=== PATIENT | female | born 1945 | race Caucasian/White ===

== ENCOUNTER 2020-07-18 14:17 | Outpatient (CLI) | payer MEDICARE ==
[2020-07-18 15:34] LABS: #Eosinphils 0.2 10x3/uL (0.0-0.5); #Monocytes 0.8 10x3/uL (0.0-1.1); #Neutrophils 6.9 10x3/uL (1.5-8.4); %Basophils 0.4 % (0.0-2.0); %Eosinophils 2.4 % (0.0-6.0); %Lymphocytes 17.3 % (18.0-47.0); %Monocytes 8.2 % (0.0-10.0); %Neutrophils 71.2 % (40.0-75.0); Hemoglobin 13.2 g/dL (12.0-15.5); Mean Corpuscular HGB CONC 31.5 g/dL (32.0-36.0); Mean Corpuscular Hemoglobin 28.4 pg (27.0-33.0); Mean Corpuscular Volume 90.3 fl (81.6-98.3); Mean Platelet Volume 9.5 fl (7.4-10.4); Platelet Count 376 10x3/uL (150-450); RBC Distribution Width 14.6 % (11.5-14.5); Red Blood Cell (RBC) Count 4.64 10x6/uL (3.90-5.03); White Blood Cell (WBC) Count 9.7 10x3/uL (3.5-10.5)
[2020-07-18 15:42] LABS: ALT (SGPT) 12 U/L (8-55); AST (SGOT) 18 U/L (5-34); Albumin 3.8 g/dL (3.4-4.8); Alkaline Phosphatase 52 U/L (40-110); Anion Gap 13 mmol/L (10-20); BUN (Urea Nitrogen) 12 mg/dL (9.8-20.1); Bilirubin, Total 0.3 mg/dL (0.2-1.2); Calc. Creatinine Clearance 0 mL/min (70-130); Calcium 9.4 mg/dL (7.8-10.44); Carbon Dioxide 28 mmol/L (23-31); Chloride 106 mmol/L (98-107); Glucose 103 mg/dL (83-110); Potassium 3.9 mmol/L (3.5-5.1); Protein, Total 6.8 g/dL (5.8-8.1); Sodium 143 mmol/L (136-145)
[2020-07-19 02:31] LABS: SARS-CoV-2 PCR by NAA Not Detected (NotDetected)
== END 2020-07-18 14:18 | disposition home or self-care (01) ==
LOC: LABBT 14:17
PROVIDERS: ATTEND Internal Medicine Cardiovascular Disease
DX: Z01.812 Encounter for preprocedural laboratory examination (principal); Z20.822 Contact with and (suspected) exposure to COVID-19
CPT/HCPCS: 80053; 85025; U0003; U0005; 87635

== ENCOUNTER 2020-08-01 13:51 | Outpatient (CLI) | payer MEDICARE ==
[2020-08-01 16:01] LABS: #Basophils 0.1 10x3/uL (0.0-0.2); #Eosinphils 0.1 10x3/uL (0.0-0.5); #Monocytes 0.8 10x3/uL (0.0-1.1); %Basophils 0.5 % (0.0-2.0); %Eosinophils 1.5 % (0.0-6.0); %Lymphocytes 16.1 % (18.0-47.0); %Monocytes 8.1 % (0.0-10.0); %Neutrophils 73.1 % (40.0-75.0); Hemoglobin 13.6 g/dL (12.0-15.5); Mean Corpuscular HGB CONC 32.1 g/dL (32.0-36.0); Mean Corpuscular Hemoglobin 28.7 pg (27.0-33.0); Mean Corpuscular Volume 89.5 fl (81.6-98.3); Mean Platelet Volume 9.4 fl (7.4-10.4); Platelet Count 362 10x3/uL (150-450); RBC Distribution Width 14.8 % (11.5-14.5); Red Blood Cell (RBC) Count 4.74 10x6/uL (3.90-5.03); White Blood Cell (WBC) Count 9.6 10x3/uL (3.5-10.5)
[2020-08-01 16:27] LABS: ALT (SGPT) 13 U/L (8-55); AST (SGOT) 17 U/L (5-34); Albumin 3.9 g/dL (3.4-4.8); Alkaline Phosphatase 49 U/L (40-110); Anion Gap 14 mmol/L (10-20); BUN (Urea Nitrogen) 15 mg/dL (9.8-20.1); Bilirubin, Total 0.4 mg/dL (0.2-1.2); Calc. Creatinine Clearance 0 mL/min (70-130); Calcium 9.7 mg/dL (7.8-10.44); Carbon Dioxide 26 mmol/L (23-31); Chloride 105 mmol/L (98-107); Globulin 2.8 g/dL (2.4-3.5); Glucose 89 mg/dL (83-110); Potassium 4.4 mmol/L (3.5-5.1); Protein, Total 6.7 g/dL (5.8-8.1); Sodium 141 mmol/L (136-145)
[2020-08-02 01:00] LABS: SARS-CoV-2 PCR by NAA Not Detected (NotDetected)
== END 2020-08-01 13:52 | disposition home or self-care (01) ==
LOC: LABBT 13:51
PROVIDERS: ATTEND Internal Medicine Cardiovascular Disease
DX: Z01.812 Encounter for preprocedural laboratory examination (principal); Z20.822 Contact with and (suspected) exposure to COVID-19
CPT/HCPCS: 80053; 85025; U0003; U0005; 87635

== ENCOUNTER 2020-08-06 07:38 | Day surgery (SDC) | payer MEDICARE ==
[2020-08-03 12:03] VITALS: BMI 30.5
[2020-08-06] MEDS ORDERED: Iopamidol 370 76% 100 ML VIAL ONE (08:47)
[2020-08-06] MEDS ORDERED: Lidocaine 1% (PF) 30 ML VIAL ONE (09:24)
[2020-08-06] MEDS ORDERED: Nitroglycerin 100MG/250ML BOT 250 ML ONE (09:46)
[2020-08-06] MEDS ORDERED: Midazolam HCl 2 mg/2 ml Vial ONE (09:47)
[2020-08-06] MEDS ORDERED: Fentanyl 100 MCG/2 ML VIAL ONE (09:47)
[2020-08-06] MEDS ORDERED: Verapamil 5 MG/2 ML VIAL ONE (09:47)
[2020-08-06] MEDS ORDERED: Heparin 10,000 UNITS/ 10 ML VIAL ONE (09:48)
[2020-08-06] MEDS ORDERED: Morphine 2 MG/ML VIAL ONE (11:34)
[2020-08-06] MEDS ORDERED: Morphine 4 MG/ML VIAL SLOW IVP SCH (12:15)
[2020-08-06] MEDS ORDERED: Acetaminophen/Codeine 30-300mg Tablet ONE (13:15)
== END 2020-08-06 14:00 | disposition home or self-care (01) ==
LOC: CCL 07:38
PROVIDERS: ATTEND Internal Medicine Cardiovascular Disease
PROC: 4A023N7 Measurement of Cardiac Sampling and Pressure, Left Heart, Percutaneous Approach (ICD-10-PCS; principal; 2020-08-06)
PROC: B2111ZZ Fluoroscopy of Multiple Coronary Arteries using Low Osmolar Contrast (ICD-10-PCS; 2020-08-06)
DX: I25.10 Atherosclerotic heart disease of native coronary artery without angina pectoris (principal); I48.0 Paroxysmal atrial fibrillation; I10 Essential (primary) hypertension; M19.90 Unspecified osteoarthritis, unspecified site; E78.5 Hyperlipidemia, unspecified; K21.9 Gastro-esophageal reflux disease without esophagitis; Z79.01 Long term (current) use of anticoagulants; Z79.899 Other long term (current) drug therapy; Z91.040 Latex allergy status; Z91.048 Other nonmedicinal substance allergy status
CPT/HCPCS: 76942; 93458; 99152; 99153; J1644; J2001; J2250; J2270; J3010; Q9967

== ENCOUNTER 2020-09-06 13:18 | Outpatient (CLI) | payer MEDICARE ==
[2020-09-06 15:12] LABS: Anion Gap 13 mmol/L (10-20); BUN (Urea Nitrogen) 20 mg/dL (9.8-20.1); Calc. Creatinine Clearance 0 mL/min (70-130); Calcium 9.8 mg/dL (7.8-10.44); Carbon Dioxide 27 mmol/L (23-31); Chloride 106 mmol/L (98-107); Glucose 70 mg/dL (83-110); Potassium 4.9 mmol/L (3.5-5.1); Sodium 141 mmol/L (136-145)
[2020-09-06 15:18] LABS: #Basophils 0.1 10x3/uL (0.0-0.2); #Eosinphils 0.1 10x3/uL (0.0-0.5); #Monocytes 0.9 10x3/uL (0.0-1.1); %Basophils 0.5 % (0.0-2.0); %Lymphocytes 20.1 % (18.0-47.0); %Monocytes 8.5 % (0.0-10.0); %Neutrophils 69.2 % (40.0-75.0); Hemoglobin 13.5 g/dL (12.0-15.5); Mean Corpuscular HGB CONC 31.8 g/dL (32.0-36.0); Mean Corpuscular Hemoglobin 29.3 pg (27.0-33.0); Mean Corpuscular Volume 92.2 fl (81.6-98.3); Platelet Count 368 10x3/uL (150-450); RBC Distribution Width 15.2 % (11.5-14.5); Red Blood Cell (RBC) Count 4.61 10x6/uL (3.90-5.03); White Blood Cell (WBC) Count 10.1 10x3/uL (3.5-10.5)
[2020-09-06 15:38] LABS: INR-International Normal Ratio 3.1; Prothrombin Time 32.4 sec (9.5-12.1)
== END 2020-09-06 13:19 | disposition home or self-care (01) ==
LOC: LABBT 13:18
PROVIDERS: ATTEND Orthopaedic Surgery
DX: Z01.818 Encounter for other preprocedural examination (principal); M16.12 Unilateral primary osteoarthritis, left hip
CPT/HCPCS: 80048; 85025; 85610; 87081; 93005; 93010

== ENCOUNTER 2020-09-11 09:23 | Inpatient (IN) | payer MEDICARE ==
[2020-09-11] MEDS ORDERED: Fentanyl 100 MCG/2 ML VIAL ONE ×3 (09:43→13:21)
[2020-09-11] MEDS ORDERED: Midazolam HCl 2 mg/2 ml Vial ONE ×2 (09:43→11:44)
[2020-09-11] MEDS ORDERED: Vancomycin 1 GM/200 ML BAG ONE (11:23)
[2020-09-11] MEDS ORDERED: Tranexamic Acid 1,000 MG/10 ML VIAL ONE (11:23)
[2020-09-11] MEDS ORDERED: Hydrocerin (Eucerin) Cream 120 gm Jar TOP PRN (12:30)
[2020-09-11] MEDS ORDERED: Bupivacaine 0.25% 10 ML VIAL EPIDURAL PRN (12:30)
[2020-09-11] MEDS ORDERED: traMADol HCl 50 MG TAB PO PRN ×2 (12:30)
[2020-09-11] MEDS ORDERED: diphenhydrAMINE 50 MG/ML VIAL IM PRN (12:30)
[2020-09-11] MEDS ORDERED: Promethazine HCl 25 MG SUPP PR PRN (12:30)
[2020-09-11] MEDS ORDERED: Naloxone HCl 0.4 mg/ml Vial IV PRN (12:30)
[2020-09-11] MEDS ORDERED: Promethazine HCl 25 MG/ML VIAL IM PRN ×3 (12:30→15:41)
[2020-09-11] MEDS ORDERED: diphenhydrAMINE 50 MG/ML VIAL IVP PRN (12:30)
[2020-09-11] MEDS ORDERED: Ondansetron PF 4 MG/2 ML Vial IVP PRN ×2 (12:30→13:12)
[2020-09-11] MEDS ORDERED: Zolpidem Tartrate 5 MG TAB PO PRN ×2 (12:30→13:12)
[2020-09-11] MEDS ORDERED: Naloxone HCl 0.4 mg/ml Vial IVP PRN (12:30)
[2020-09-11] MEDS ORDERED: Acetaminophen 325 MG TAB PO PRN (13:12)
[2020-09-11] MEDS ORDERED: diphenhydrAMINE 25 MG CAP PO PRN (13:12)
[2020-09-11] MEDS ORDERED: HYDROcodone/Acetaminophen 10/325 mg Tablet PO PRN ×2 (13:12)
[2020-09-11] MEDS ORDERED: Phenylephrine 10 MG/ML VIAL ONE (13:21)
[2020-09-11] MEDS ORDERED: Bupivacaine 0.25% HCL 30 ML VIAL ONE (13:22)
[2020-09-11] MEDS ORDERED: Dexamethasone 20 MG/5 ML VIAL ONE (13:35)
[2020-09-11] MEDS ORDERED: Lidocaine 1.5% w/Epi 1:200K 30 ML VIAL (Epid Use) ONE (13:35)
[2020-09-11] MEDS ORDERED: Lidocaine 1% PF 5 ML VIAL ONE (13:35)
[2020-09-11] MEDS ORDERED: Ondansetron PF 4 MG/2 ML Vial ONE (13:35)
[2020-09-11] MEDS ORDERED: Glycopyrrolate 0.2 MG/ML 5 ML SYRINGE ONE (13:35)
[2020-09-11] MEDS ORDERED: PROPOFOL 200 MG/20 ML VIAL ONE (13:35)
[2020-09-11] MEDS ORDERED: Rocuronium Bromide 10 MG/ML (10ML VIAL) ONE (13:35)
[2020-09-11] MEDS ORDERED: SUMAtriptan Succinate 50 MG TAB PO PRN (13:35)
[2020-09-11] MEDS ORDERED: Ketorolac Tromethamine 30 MG/ML VIAL ONE (13:35)
[2020-09-11] MEDS ORDERED: Ondansetron HCl/PF 4 MG/2 ML Vial IVP PRN (15:41)
[2020-09-11] MEDS ORDERED: Promethazine HCl 25 MG/ML VIAL SLOW IVP PRN (15:41)
[2020-09-11] MEDS ORDERED: Meperidine HCl/PF 25 MG/ML VIAL ONE (15:57)
[2020-09-11] MEDS: CEFAZOLIN 2 GM in Premix Bag 1 BAG IVPB SCH (20:23)
[2020-09-11] MEDS: Cyclobenzaprine 10 MG TAB PO SCH (20:24)
[2020-09-11] MEDS: Aspirin 81 mg Enteric Coated Tablet PO SCH (20:24)
[2020-09-11] MEDS: Famotidine 20 MG TAB PO SCH (20:25)
[2020-09-11] MEDS: Lisinopril 20 MG TAB PO SCH (20:25)
[2020-09-11] MEDS: Ferrous Gluconate 324 MG TAB PO SCH (20:25)
[2020-09-11] MEDS: Senokot S 8.6-50 MG TAB PO SCH (20:26)
[2020-09-11] MEDS: Metoprolol Tartrate 25 MG TAB PO SCH (20:26)
[2020-09-11] MEDS: diphenhydrAMINE 25 MG CAP PO PRN (20:34)
[2020-09-11] MEDS: HYDROcodone/Acetaminophen 5/325 mg Tablet PO PRN (20:34)
[2020-09-11] MEDS: Ketorolac Tromethamine 30 MG/ML VIAL IVP SCH ×2 (20:38→23:33)
[2020-09-11] MEDS: Sodium Chloride 0.9% 1,000 ML IV SCH (20:38)
[2020-09-11] MEDS ORDERED: HYDROcodone/Acetaminophen 5/325 mg Tablet PO SCH (21:00)
[2020-09-11] MEDS: Cholestyramine/Aspartame 4 gm Packet PO SCH (22:35)
[2020-09-11 23:01] VITALS: BMI 29.7
[2020-09-12] MEDS: CEFAZOLIN 2 GM in Premix Bag 1 BAG IVPB SCH (04:16)
[2020-09-12] MEDS: HYDROcodone/Acetaminophen 5/325 mg Tablet PO PRN ×5 (04:16→20:57)
[2020-09-12 05:10] LABS: Hemoglobin 11.7 g/dL (12.0-16.0); Mean Corpuscular HGB CONC 32.8 g/dL (32.0-36.0); Mean Corpuscular Hemoglobin 30.4 pg (27.0-31.0); Mean Corpuscular Volume 92.7 fL (78.0-98.0); Mean Platelet Volume 6.7 fL (7.4-10.4); Platelet Count 300 thou/uL (130-400); RBC Distribution Width 13.6 % (11.5-14.5); Red Blood Cell (RBC) Count 3.84 mill/uL (4.20-5.40); White Blood Cell (WBC) Count 11.7 thou/uL (4.8-10.8)
[2020-09-12] MEDS: Ketorolac Tromethamine 30 MG/ML VIAL IVP SCH ×4 (05:36→19:22)
[2020-09-12] MEDS: Famotidine 20 MG TAB PO SCH (08:45)
[2020-09-12] MEDS: Aspirin 81 mg Enteric Coated Tablet PO SCH (08:45)
[2020-09-12] MEDS: Amlodipine 5 MG TAB PO SCH (08:46)
[2020-09-12] MEDS: Senokot S 8.6-50 MG TAB PO SCH ×2 (08:46→19:21)
[2020-09-12] MEDS: Metoprolol Tartrate 25 MG TAB PO SCH ×2 (08:47→20:58)
[2020-09-12] MEDS: Multivitamin W/ Minerals 1 TAB PO SCH (08:47)
[2020-09-12] MEDS: Ferrous Gluconate 324 MG TAB PO SCH ×2 (08:48→20:58)
[2020-09-12] MEDS: Fentanyl 5 mcg/Bup 0.075% Cadd 100 ML EPIDURAL SCH ×2 (08:54→23:19)
[2020-09-12] MEDS ORDERED: Mesalamine [Mesalamine] 1.2 GM Tablet.Dr PO SCH (09:00)
[2020-09-12] MEDS ORDERED: Estradiol 1 MG TAB PO SCH (09:00)
[2020-09-12] MEDS: diphenhydrAMINE 25 MG CAP PO PRN ×2 (12:47→21:01)
[2020-09-12] MEDS: Sodium Chloride 0.9% 1,000 ML IV SCH ×4 (12:53→23:11)
[2020-09-12] MEDS: Cholestyramine/Aspartame 4 gm Packet PO SCH ×2 (14:28→21:00)
[2020-09-12] MEDS: medroxyPROGESTERone Acetate 2.5 MG TAB PO SCH (14:29)
[2020-09-12] MEDS: Cyclobenzaprine 10 MG TAB PO SCH (20:58)
[2020-09-12] MEDS: Lisinopril 20 MG TAB PO SCH (20:59)
[2020-09-12] MEDS ORDERED: Calcium Carbonate 500 MG ChewTAB PO PRN (21:17)
[2020-09-13] MEDS: HYDROcodone/Acetaminophen 5/325 mg Tablet PO PRN ×4 (01:04→14:49)
[2020-09-13] MEDS: medroxyPROGESTERone Acetate 2.5 MG TAB PO SCH (08:43)
[2020-09-13] MEDS: Metoprolol Tartrate 25 MG TAB PO SCH (08:43)
[2020-09-13] MEDS: Ferrous Gluconate 324 MG TAB PO SCH (08:43)
[2020-09-13] MEDS: Multivitamin W/ Minerals 1 TAB PO SCH (08:43)
[2020-09-13] MEDS: Famotidine 20 MG TAB PO SCH (08:43)
[2020-09-13] MEDS: Amlodipine 5 MG TAB PO SCH (08:44)
[2020-09-13] MEDS: Senokot S 8.6-50 MG TAB PO SCH (08:45)
[2020-09-13] MEDS: Cholestyramine/Aspartame 4 gm Packet PO SCH (08:45)
[2020-09-13] MEDS ORDERED: Enoxaparin Sodium 40 MG/0.4 ML SYRINGE SC SCH (09:15)
[2020-09-13] MEDS: Ketorolac Tromethamine 30 MG/ML VIAL IVP SCH (11:14)
[2020-09-13 11:47] VITALS: BP 101/65; TEMP 98.2
== END 2020-09-13 15:20 | disposition home or self-care (01) | DRG 470 ==
LOC: SDC 09:23 → SURG A 13:12 → EDSTATUS 13:15
PROVIDERS: ADMIT Orthopaedic Surgery; ATTEND Orthopaedic Surgery
PROC: 0SRB039 Replacement of Left Hip Joint with Ceramic Synthetic Substitute, Cemented, Open Approach (ICD-10-PCS; principal; 2020-09-11)
PROC: 3E0T3BZ Introduction of Anesthetic Agent into Peripheral Nerves and Plexi, Percutaneous Approach (ICD-10-PCS; 2020-09-11)
DX: M16.12 Unilateral primary osteoarthritis, left hip (principal); I10 Essential (primary) hypertension; E78.00 Pure hypercholesterolemia, unspecified; Z96.652 Presence of left artificial knee joint; E78.5 Hyperlipidemia, unspecified; I25.10 Atherosclerotic heart disease of native coronary artery without angina pectoris; I48.0 Paroxysmal atrial fibrillation; K21.9 Gastro-esophageal reflux disease without esophagitis; Z87.891 Personal history of nicotine dependence; Z79.899 Other long term (current) drug therapy
CPT/HCPCS: 36415; 85027; J0690; J1100; J1650; J1885; J2001; J2175; J2250; J2370; J2405; J2704; J3010; J3370; Q0163; S0020

== ENCOUNTER 2021-03-15 12:36 | Emergency (ER) | payer MEDICARE ==
[2021-03-15] MEDS ORDERED: HYDROcodone/Acetaminophen 10/325 mg Tablet ONE (13:35)
== END 2021-03-15 16:03 | disposition home or self-care (01) ==
LOC: ERS 12:36
DX: M25.552 Pain in left hip (principal); R26.2 Difficulty in walking, not elsewhere classified; I10 Essential (primary) hypertension; M19.90 Unspecified osteoarthritis, unspecified site
CPT/HCPCS: 72170

== ENCOUNTER 2021-03-18 13:58 | Inpatient (IN) | payer MEDICARE, OTHER ==
[2021-03-18] MEDS ORDERED: Rocuronium Bromide 10 MG/ML (10ML VIAL) ONE ×2 (14:31→14:32)
[2021-03-18] MEDS ORDERED: Adenosine 6 MG/2 ML VIAL ONE (14:32)
[2021-03-18] MEDS ORDERED: EPINEPHrine 1 MG/10 ML Abboject SYRINGE ONE (14:33)
[2021-03-18] MEDS ORDERED: Fentanyl CADD 100 ML IV SCH ×2 (14:45→16:15)
[2021-03-18 15:30] LABS: Actual Bicarbonate (HCO3a) 19.2 mEq/L (22-28); Analyzer IN Cardio ER; Base Excess (BEa) -5.6 mEq/L (-2.0 to +3.0); CO2 Tension 34.4 mmHg (35.0-45.0); Calcium, Ionized (arterial) 1.16 mmol/L (1.12-1.30); Carboxyhemoglobin (COHb) 1.1 gm% (0.0-3.0); Hemoglobin (Hb) 7.8 g/dL (12.0-16.0); O2 Tension (PaO2), arterial 149.2 mmHg (> 70.0); Potassium - ABG Lab 3.85 mmol/L (3.70-5.30); pH, Arterial 7.37 (7.35-7.45)
[2021-03-18 15:31] LABS: Puncture Site LRA
[2021-03-18] MEDS ORDERED: Midazolam HCl 2 mg/2 ml Vial ONE (15:43)
[2021-03-18 15:45] LABS: Hemoglobin 7.9 g/dL (12.0-16.0); Mean Corpuscular HGB CONC 32.8 g/dL (32.0-36.0); Mean Corpuscular Hemoglobin 29.8 pg (27.0-31.0); Mean Corpuscular Volume 90.8 fL (78.0-98.0); Mean Platelet Volume 5.8 fL (7.4-10.4); Platelet Count 685 thou/uL (130-400); RBC Distribution Width 13.1 % (11.5-14.5); Red Blood Cell (RBC) Count 2.64 mill/uL (4.20-5.40); White Blood Cell (WBC) Count 27.9 thou/uL (4.8-10.8)
[2021-03-18 15:48] LABS: SARS-CoV-2 NAA Rapid Test Not Detected (NotDetected)
[2021-03-18 15:51] LABS: INR-International Normal Ratio 1.2; PTT 27.1 sec (22.9-36.1); Prothrombin Time 15.3 sec (12.0-14.7)
[2021-03-18 15:54] LABS: ALT (SGPT) 17 U/L (8-55); AST (SGOT) 37 U/L (5-34); Albumin 3.2 g/dL (3.4-4.8); Alkaline Phosphatase 62 U/L (40-110); Anion Gap 14 mmol/L (10-20); BUN (Urea Nitrogen) 18 mg/dL (9.8-20.1); Calc. Creatinine Clearance 0 mL/min (70-130); Calcium 8.8 mg/dL (7.8-10.44); Carbon Dioxide 19 mmol/L (23-31); Chloride 106 mmol/L (98-107); Glucose 152 mg/dL (83-110); Protein, Total 7.2 g/dL (5.8-8.1); Sodium 135 mmol/L (136-145)
[2021-03-18] MEDS ORDERED: Insulin Regular 300 UNITS/3 ML VIAL SC PRN (16:00)
[2021-03-18] MEDS ORDERED: Dextrose 50% Abboject 50 ML SYRINGE SLOW IVP PRN (16:00)
[2021-03-18] MEDS ORDERED: Dextrose 5% in Water 1,000 ML IV PRN (16:00)
[2021-03-18] MEDS ORDERED: hydrALAZINE 20 MG/ML VIAL SLOW IVP PRN (16:00)
[2021-03-18 16:03] LABS: Band 8 % (5-11); Lymphocytes 4 % (21-51); MDiff Complete? YES; Monocytes 6 % (0-10); Neutrophil 82 % (42-75); Platelet Morphology Comment Appears Increased; Polychromasia SLIGHT = 2-3 cells (100X) (0-2/hpf)
[2021-03-18] MEDS ORDERED: Fentanyl BOLUS 250 ML IVPB PRN (16:15)
[2021-03-18] MEDS ORDERED: Propofol BOLUS 1,000 MG/100 ML VIAL IV PRN (16:15)
[2021-03-18] MEDS ORDERED: DISCONTINUE PREVIOUS NARCOTIC PAIN MEDICATIONS AND BENZODIAZEPINES FS SCH (16:15)
[2021-03-18] MEDS ORDERED: Ventilator Sedation Protocol 1 EACH FS SCH (16:15)
[2021-03-18 16:17] LABS: Lactic Acid 1.3 mmol/L (0.5-2.2)
[2021-03-18 16:19] LABS: Phosphorus 3.2 mg/dL (2.3-4.7)
[2021-03-18] MEDS: Propofol 1,000 MG/100 ML VIAL IV PRN (16:54)
[2021-03-18] MEDS: Sodium Chloride 0.9% 1,000 ML IV SCH (16:54)
[2021-03-18] MEDS ORDERED: Sodium Phosphate 15 MMOL in Sodium Chloride 0.9% 250 ML 250 ML IVPB SCH (17:00)
[2021-03-18] MEDS ORDERED: Fentanyl 100 MCG/2 ML VIAL ONE (17:26)
[2021-03-18] MEDS ORDERED: Lidocaine 0.5%/Epinephrine 1:200,000 50 ml Vial ONE (17:31)
[2021-03-18] MEDS ORDERED: Vecuronium 10 MG VIAL ONE (17:58)
[2021-03-18] MEDS ORDERED: PROPOFOL 200 MG/20 ML VIAL ONE (17:58)
[2021-03-18] MEDS ORDERED: Phenylephrine 10 MG/ML VIAL ONE (17:58)
[2021-03-18] MEDS ORDERED: Thrombin 5000 UNITS/5 ML VIAL ONE (18:08)
[2021-03-18] MEDS: Acetaminophen 500 MG TAB PO SCH (18:12)
[2021-03-18] MEDS: Famotidine/PF 20 mg/2ml Vial SLOW IVP SCH (22:39)
[2021-03-18] MEDS: Senokot S 8.6-50 MG TAB PO SCH (22:39)
[2021-03-18] MEDS: ceFAZolin 2 GM/Dextrose 50 ML 2 GM in Premix Bag 1 BAG IVPB SCH (22:41)
[2021-03-19] MEDS: Senokot S 8.6-50 MG TAB PO SCH ×3 (00:29→21:17)
[2021-03-19] MEDS ORDERED: Acetaminophen 325 MG Suppository PR SCH (00:45)
[2021-03-19] MEDS: Acetaminophen 500 MG TAB PO SCH (00:51)
[2021-03-19] MEDS: Propofol 1,000 MG/100 ML VIAL IV PRN ×2 (01:29→06:20)
[2021-03-19] MEDS ORDERED: Lorazepam 2 MG/ML VIAL SLOW IVP SCH (03:15)
[2021-03-19 04:01] LABS: Anion Gap 12 mmol/L (10-20); BUN (Urea Nitrogen) 13 mg/dL (9.8-20.1); Calc. Creatinine Clearance 104 mL/min (70-130); Calcium 7.9 mg/dL (7.8-10.44); Carbon Dioxide 21 mmol/L (23-31); Chloride 108 mmol/L (98-107); Glucose 103 mg/dL (83-110); Magnesium 1.9 mg/dL (1.6-2.6); Phosphorus 2.6 mg/dL (2.3-4.7); Sodium 137 mmol/L (136-145)
[2021-03-19] MEDS: ceFAZolin 2 GM/Dextrose 50 ML 2 GM in Premix Bag 1 BAG IVPB SCH ×3 (06:00→21:18)
[2021-03-19] MEDS: Acetaminophen 325 MG Suppository PR SCH ×2 (06:00→18:37)
[2021-03-19] MEDS: Sodium Chloride 0.9% 1,000 ML IV SCH ×2 (06:01→21:17)
[2021-03-19 06:56] LABS: INR-International Normal Ratio 1.3; PTT 38.5 sec (22.9-36.1); Prothrombin Time 16.3 sec (12.0-14.7)
[2021-03-19 07:15] LABS: Actual Bicarbonate (HCO3a) 23.3 mEq/L (22-28); Base Excess (BEa) -0.7 mEq/L (-2.0 to +3.0); CO2 Tension 34.7 mmHg (35.0-45.0); Calcium, Ionized (arterial) 1.05 mmol/L (1.12-1.30); Carboxyhemoglobin (COHb) 0.3 gm% (0.0-3.0); Hemoglobin (Hb) 6.7 g/dL (12.0-16.0); O2 Tension (PaO2), arterial 169.5 mmHg (> 70.0); pH, Arterial 7.44 (7.35-7.45)
[2021-03-19 07:16] LABS: ALV-art Gradient 72.325 mmHg (0-20); Puncture Site LRA
[2021-03-19] MEDS ORDERED: SODIUM PHOSPHATE IVPB SCH ×2 (08:30→09:15)
[2021-03-19] MEDS ORDERED: Calcium Chloride 13.6 MEQ in Sodium Chloride 0.9% 100 ML IVPB SCH (08:30)
[2021-03-19] MEDS ORDERED: MAGNESIUM IVPB SCH (08:30)
[2021-03-19] MEDS ORDERED: Calcium Chloride 1 GM/10 ML Abboject SYRINGE IVP SCH (08:30)
[2021-03-19] MEDS: Famotidine/PF 20 mg/2ml Vial SLOW IVP SCH ×2 (08:51→21:17)
[2021-03-19] MEDS ORDERED: FLU VACC QS2021-22(65YR UP)/PF 240 MCG/0.7 ML SYRINGE IM ONE (09:00)
[2021-03-19] MEDS ORDERED: MAGNESIUM SULFATE IVPB SCH (09:15)
[2021-03-19] MEDS ORDERED: SODIUM CHLORIDE 0.9% IVPB SCH (09:15)
[2021-03-19 09:32] LABS: #Basophils 0.1 thou/uL (0.0-0.2); #Eosinphils 0.1 thou/uL (0.0-0.7); #Lymphocytes 1.8 thou/uL (1.20-3.40); #Monocytes 1.8 thou/uL (0.11-0.59); %Basophils 0.5 % (0.0-1.0); %Eosinophils 0.5 % (0.0-10.0); %Lymphocytes 11.6 % (21.0-51.0); %Monocytes 11.4 % (0.0-10.0); Hemoglobin 7.3 g/dL (12.0-16.0); Mean Corpuscular HGB CONC 30.7 g/dL (32.0-36.0); Mean Corpuscular Hemoglobin 29.9 pg (27.0-31.0); Mean Corpuscular Volume 97.2 fL (78.0-98.0); Mean Platelet Volume 5.6 fL (7.4-10.4); Platelet Count 555 thou/uL (130-400); RBC Distribution Width 13.2 % (11.5-14.5); Red Blood Cell (RBC) Count 2.45 mill/uL (4.20-5.40); White Blood Cell (WBC) Count 15.8 thou/uL (4.8-10.8)
[2021-03-19] MEDS: Polyethylene Glycol 3350 17 GM Packet PO SCH (11:53)
[2021-03-19] MEDS: Acetaminophen 325 MG TAB PO SCH ×2 (17:47→23:56)
[2021-03-19 18:24] LABS: Hemoglobin 9.1 g/dL (12.0-16.0); Mean Corpuscular Hemoglobin 31.2 pg (27.0-31.0); Mean Corpuscular Volume 91.6 fL (78.0-98.0); Mean Platelet Volume 5.4 fL (7.4-10.4); Platelet Count 563 thou/uL (130-400); Red Blood Cell (RBC) Count 2.91 mill/uL (4.20-5.40); White Blood Cell (WBC) Count 14.6 thou/uL (4.8-10.8)
[2021-03-19 18:55] LABS: #Eosinphils 0.1 thou/uL (0.0-0.7); #Lymphocytes 1.2 thou/uL (1.20-3.40); #Monocytes 1.1 thou/uL (0.11-0.59); #Neutrophils 12.2 thou/uL (1.40-6.50); %Basophils 0.2 % (0.0-1.0); %Eosinophils 0.9 % (0.0-10.0); %Monocytes 7.6 % (0.0-10.0); %Neutrophils 83.4 % (42.0-75.0)
[2021-03-19 21:32] LABS: Actual Bicarbonate (HCO3a) 20.3 mEq/L (22-28); Base Excess (BEa) -3.4 mEq/L (-2.0 to +3.0); CO2 Tension 31.4 mmHg (35.0-45.0); Calcium, Ionized (arterial) 1.12 mmol/L (1.12-1.30); Carboxyhemoglobin (COHb) 0.5 gm% (0.0-3.0); O2 Tension (PaO2), arterial 52.6 mmHg (> 70.0); Potassium - ABG Lab 3.84 mmol/L (3.70-5.30); pH, Arterial 7.43 (7.35-7.45)
[2021-03-19 21:33] LABS: Puncture Site LINE
[2021-03-20 04:51] LABS: #Eosinphils 0.1 thou/uL (0.0-0.7); #Lymphocytes 1.7 thou/uL (1.20-3.40); #Monocytes 1.2 thou/uL (0.11-0.59); #Neutrophils 11.7 thou/uL (1.40-6.50); %Basophils 0.3 % (0.0-1.0); %Eosinophils 0.7 % (0.0-10.0); %Lymphocytes 11.7 % (21.0-51.0); %Monocytes 8.2 % (0.0-10.0); %Neutrophils 79.1 % (42.0-75.0); Hemoglobin 8.7 g/dL (12.0-16.0); Mean Corpuscular HGB CONC 34.1 g/dL (32.0-36.0); Mean Corpuscular Hemoglobin 31.2 pg (27.0-31.0); Mean Corpuscular Volume 91.5 fL (78.0-98.0); Mean Platelet Volume 5.7 fL (7.4-10.4); Platelet Count 557 thou/uL (130-400); Red Blood Cell (RBC) Count 2.78 mill/uL (4.20-5.40); White Blood Cell (WBC) Count 14.8 thou/uL (4.8-10.8)
[2021-03-20] MEDS: ceFAZolin 2 GM/Dextrose 50 ML 2 GM in Premix Bag 1 BAG IVPB SCH (05:33)
[2021-03-20] MEDS: Acetaminophen 325 MG TAB PO SCH (05:34)
[2021-03-20 06:22] LABS: Anion Gap 10 mmol/L (10-20); BUN (Urea Nitrogen) 9 mg/dL (9.8-20.1); Calc. Creatinine Clearance 114 mL/min (70-130); Calcium 7.9 mg/dL (7.8-10.44); Carbon Dioxide 24 mmol/L (23-31); Chloride 110 mmol/L (98-107); Glucose 90 mg/dL (83-110); Magnesium 2.3 mg/dL (1.6-2.6); Potassium 3.5 mmol/L (3.5-5.1); Sodium 140 mmol/L (136-145)
[2021-03-20] MEDS ORDERED: Potassium Phosphate 30 MMOL in Sodium Chloride 0.9% 250 ML 250 ML IVPB SCH (07:15)
[2021-03-20] MEDS: Famotidine/PF 20 mg/2ml Vial SLOW IVP SCH ×2 (10:09→21:08)
[2021-03-20] MEDS: Polyethylene Glycol 3350 17 GM Packet PO SCH (10:21)
[2021-03-20] MEDS: Senokot S 8.6-50 MG TAB PO SCH ×2 (10:26→21:09)
[2021-03-20] MEDS: Acetaminophen 325 MG/10.15 ML UDCUP PO SCH ×2 (13:31→22:36)
[2021-03-20] MEDS: Ondansetron PF 4 MG/2 ML Vial IVP PRN (13:53)
[2021-03-20] MEDS ORDERED: Acetaminophen 325 MG TAB PO SCH (18:15)
[2021-03-20] MEDS: Pregabalin 50 MG CAP PO SCH (21:08)
[2021-03-20] MEDS: Metoprolol Tartrate 25 MG TAB PO SCH (21:09)
[2021-03-21] MEDS: Acetaminophen 325 MG TAB PO SCH ×5 (00:36→23:14)
[2021-03-21 05:42] LABS: #Eosinphils 0.2 thou/uL (0.0-0.7); #Lymphocytes 1.8 thou/uL (1.20-3.40); #Monocytes 1.5 thou/uL (0.11-0.59); #Neutrophils 10.3 thou/uL (1.40-6.50); %Basophils 0.1 % (0.0-1.0); %Eosinophils 1.8 % (0.0-10.0); %Lymphocytes 12.8 % (21.0-51.0); %Monocytes 10.9 % (0.0-10.0); %Neutrophils 74.4 % (42.0-75.0); Hemoglobin 8.4 g/dL (12.0-16.0); Mean Corpuscular HGB CONC 33.3 g/dL (32.0-36.0); Mean Corpuscular Hemoglobin 30.8 pg (27.0-31.0); Mean Corpuscular Volume 92.4 fL (78.0-98.0); Mean Platelet Volume 5.6 fL (7.4-10.4); Platelet Count 521 thou/uL (130-400); RBC Distribution Width 13.4 % (11.5-14.5); Red Blood Cell (RBC) Count 2.72 mill/uL (4.20-5.40); White Blood Cell (WBC) Count 13.9 thou/uL (4.8-10.8)
[2021-03-21 06:08] LABS: Anion Gap 12 mmol/L (10-20); BUN (Urea Nitrogen) 9 mg/dL (9.8-20.1); Calc. Creatinine Clearance 120 mL/min (70-130); Calcium 7.9 mg/dL (7.8-10.44); Carbon Dioxide 22 mmol/L (23-31); Chloride 108 mmol/L (98-107); Glucose 89 mg/dL (83-110); Magnesium 2.3 mg/dL (1.6-2.6); Phosphorus 1.5 mg/dL (2.3-4.7); Potassium 3.8 mmol/L (3.5-5.1); Sodium 138 mmol/L (136-145)
[2021-03-21] MEDS ORDERED: Potassium Phosphate 30 MMOL in Sodium Chloride 0.9% 250 ML 250 ML IVPB SCH ×2 (07:15→09:00)
[2021-03-21] MEDS ORDERED: Famotidine 20 MG TAB PO SCH ×2 (09:00→21:00)
[2021-03-21] MEDS: Pregabalin 50 MG CAP PO SCH ×2 (09:02→20:40)
[2021-03-21] MEDS: Senokot S 8.6-50 MG TAB PO SCH ×3 (09:02→23:07)
[2021-03-21] MEDS: Polyethylene Glycol 3350 17 GM Packet PO SCH ×2 (09:03→09:17)
[2021-03-21] MEDS: Metoprolol Tartrate 25 MG TAB PO SCH ×2 (09:03→20:39)
[2021-03-21] MEDS: Calcium Carbonate 500 MG ChewTAB PO PRN (16:55)
[2021-03-21] MEDS: diphenhydrAMINE 25 MG CAP PO PRN ×2 (16:56→20:46)
[2021-03-21] MEDS: Estradiol 1 MG TAB PO SCH (17:00)
[2021-03-21] MEDS: Melatonin 3 MG TAB PO PRN (23:13)
[2021-03-22] MEDS: Calcium Carbonate 500 MG ChewTAB PO PRN (02:35)
[2021-03-22] MEDS: diphenhydrAMINE 25 MG CAP PO PRN ×3 (02:35→20:05)
[2021-03-22] MEDS: Acetaminophen 325 MG TAB PO SCH ×4 (04:59→22:11)
[2021-03-22 06:46] LABS: #Eosinphils 0.5 thou/uL (0.0-0.7); #Lymphocytes 1.8 thou/uL (1.20-3.40); #Monocytes 1.3 thou/uL (0.11-0.59); #Neutrophils 8.9 thou/uL (1.40-6.50); %Basophils 0.3 % (0.0-1.0); %Eosinophils 3.6 % (0.0-10.0); %Lymphocytes 14.3 % (21.0-51.0); %Monocytes 10.4 % (0.0-10.0); %Neutrophils 71.4 % (42.0-75.0); Hemoglobin 8.6 g/dL (12.0-16.0); Mean Corpuscular HGB CONC 33.5 g/dL (32.0-36.0); Mean Corpuscular Hemoglobin 31.2 pg (27.0-31.0); Mean Corpuscular Volume 93.1 fL (78.0-98.0); Mean Platelet Volume 5.6 fL (7.4-10.4); Platelet Count 498 thou/uL (130-400); RBC Distribution Width 13.7 % (11.5-14.5); Red Blood Cell (RBC) Count 2.75 mill/uL (4.20-5.40); White Blood Cell (WBC) Count 12.5 thou/uL (4.8-10.8)
[2021-03-22 07:10] LABS: Anion Gap 11 mmol/L (10-20); BUN (Urea Nitrogen) 7 mg/dL (9.8-20.1); Calc. Creatinine Clearance 156 mL/min (70-130); Calcium 8.5 mg/dL (7.8-10.44); Carbon Dioxide 22 mmol/L (23-31); Chloride 106 mmol/L (98-107); Glucose 87 mg/dL (83-110); Magnesium 2.1 mg/dL (1.6-2.6); Sodium 135 mmol/L (136-145)
[2021-03-22] MEDS ORDERED: Sodium Phosphate 30 MMOL in Sodium Chloride 0.9% 250 ML 250 ML IVPB SCH (08:00)
[2021-03-22] MEDS: Polyethylene Glycol 3350 17 GM Packet PO SCH (09:37)
[2021-03-22] MEDS: Senokot S 8.6-50 MG TAB PO SCH (09:38)
[2021-03-22] MEDS: Calcium Carbonate 500 MG ChewTAB PO SCH ×3 (09:44→20:02)
[2021-03-22] MEDS: Ezetimibe 10 MG TAB PO SCH (09:45)
[2021-03-22] MEDS: Metoprolol Tartrate 25 MG TAB PO SCH ×2 (09:45→20:03)
[2021-03-22] MEDS: Pregabalin 50 MG CAP PO SCH ×2 (09:45→20:04)
[2021-03-22] MEDS: medroxyPROGESTERone Acetate 2.5 MG TAB PO SCH (09:45)
[2021-03-22] MEDS: Cholecalciferol 1,000 UNITS (25 MCG) TAB PO SCH (09:45)
[2021-03-22] MEDS: Acetaminophen/Codeine 30-300mg Tablet PO SCH ×3 (12:05→22:00)
[2021-03-22] MEDS: Melatonin 3 MG TAB PO PRN (20:05)
[2021-03-23] MEDS: Acetaminophen/Codeine 30-300mg Tablet PO SCH (04:35)
[2021-03-23] MEDS: Acetaminophen 325 MG TAB PO SCH ×4 (04:36→21:22)
[2021-03-23] MEDS: Metoprolol Tartrate 25 MG TAB PO SCH ×2 (08:22→21:23)
[2021-03-23] MEDS: Ezetimibe 10 MG TAB PO SCH (08:22)
[2021-03-23] MEDS: Cholecalciferol 1,000 UNITS (25 MCG) TAB PO SCH (08:22)
[2021-03-23] MEDS: Pregabalin 50 MG CAP PO SCH ×2 (08:22→21:21)
[2021-03-23] MEDS: Calcium Carbonate 500 MG ChewTAB PO SCH ×3 (08:22→21:21)
[2021-03-23] MEDS: diphenhydrAMINE 25 MG CAP PO PRN ×2 (08:26→18:22)
[2021-03-23] MEDS: Acetaminophen/Codeine 30-300mg Tablet PO PRN ×2 (10:47→18:22)
[2021-03-23] MEDS: medroxyPROGESTERone Acetate 2.5 MG TAB PO SCH (10:47)
[2021-03-23] MEDS: Melatonin 3 MG TAB PO PRN (21:23)
[2021-03-24] MEDS: Acetaminophen/Codeine 30-300mg Tablet PO PRN ×4 (00:06→22:48)
[2021-03-24] MEDS: Acetaminophen 325 MG TAB PO SCH ×4 (05:26→22:47)
[2021-03-24] MEDS: Pregabalin 50 MG CAP PO SCH ×2 (09:19→22:46)
[2021-03-24] MEDS: Metoprolol Tartrate 25 MG TAB PO SCH ×2 (09:19→22:45)
[2021-03-24] MEDS: Calcium Carbonate 500 MG ChewTAB PO SCH ×3 (09:19→22:45)
[2021-03-24] MEDS: Cholecalciferol 1,000 UNITS (25 MCG) TAB PO SCH (09:20)
[2021-03-24] MEDS: Ezetimibe 10 MG TAB PO SCH (09:21)
[2021-03-24] MEDS: medroxyPROGESTERone Acetate 2.5 MG TAB PO SCH (09:21)
[2021-03-24] MEDS: diphenhydrAMINE 25 MG CAP PO PRN (13:19)
[2021-03-24] MEDS: Estradiol 1 MG TAB PO SCH (15:11)
[2021-03-25] MEDS: Acetaminophen 325 MG TAB PO SCH ×3 (05:47→17:47)
[2021-03-25] MEDS ORDERED: Haloperidol Lactate 5 MG/ML VIAL SLOW IVP SCH ×3 (09:00→23:59)
[2021-03-25 09:18] LABS: #Basophils 0.1 thou/uL (0.0-0.2); #Eosinphils 0.3 thou/uL (0.0-0.7); #Lymphocytes 1.8 thou/uL (1.20-3.40); #Monocytes 1.4 thou/uL (0.11-0.59); #Neutrophils 11.5 thou/uL (1.40-6.50); %Basophils 0.3 % (0.0-1.0); %Eosinophils 1.7 % (0.0-10.0); %Lymphocytes 11.9 % (21.0-51.0); %Monocytes 9.6 % (0.0-10.0); %Neutrophils 76.4 % (42.0-75.0); Hemoglobin 10.2 g/dL (12.0-16.0); Mean Corpuscular HGB CONC 33.8 g/dL (32.0-36.0); Mean Corpuscular Hemoglobin 31.6 pg (27.0-31.0); Mean Corpuscular Volume 93.4 fL (78.0-98.0); Mean Platelet Volume 6.1 fL (7.4-10.4); Platelet Count 614 thou/uL (130-400); RBC Distribution Width 14.4 % (11.5-14.5); Red Blood Cell (RBC) Count 3.24 mill/uL (4.20-5.40)
[2021-03-25 09:48] LABS: ALT (SGPT) 11 U/L (8-55); AST (SGOT) 24 U/L (5-34); Alkaline Phosphatase 71 U/L (40-110); Anion Gap 12 mmol/L (10-20); BUN (Urea Nitrogen) 7 mg/dL (9.8-20.1); Calc. Creatinine Clearance 134 mL/min (70-130); Calcium 9.5 mg/dL (7.8-10.44); Carbon Dioxide 21 mmol/L (23-31); Chloride 104 mmol/L (98-107); Glucose 97 mg/dL (83-110); Potassium 3.9 mmol/L (3.5-5.1); Sodium 133 mmol/L (136-145)
[2021-03-25] MEDS ORDERED: diphenhydrAMINE 50 MG/ML VIAL IVP SCH ×2 (10:00→14:15)
[2021-03-25 10:22] LABS: Magnesium 1.7 mg/dL (1.6-2.6); Phosphorus 2.6 mg/dL (2.3-4.7)
[2021-03-25 10:48] LABS: Band 15 % (5-11); Eosinophils 4 % (0-10); Hemoglobin 10.1 g/dL (12.0-16.0); Lymphocytes 12 % (21-51); MDiff Complete? YES; Mean Corpuscular HGB CONC 32.6 g/dL (32.0-36.0); Mean Corpuscular Hemoglobin 30.6 pg (27.0-31.0); Mean Corpuscular Volume 93.9 fL (78.0-98.0); Mean Platelet Volume 6.4 fL (7.4-10.4); Monocytes 14 % (0-10); Neutrophil 54 % (42-75); Platelet Count 639 thou/uL (130-400); Platelet Morphology Comment Appears Increased; Polychromasia SLIGHT = 2-3 cells (100X) (0-2/hpf); RBC Distribution Width 14.4 % (11.5-14.5); Reactive Lymphocytes 1 % (0-10); Red Blood Cell (RBC) Count 3.31 mill/uL (4.20-5.40); White Blood Cell (WBC) Count 14.3 thou/uL (4.8-10.8)
[2021-03-25] MEDS ORDERED: Magnesium Sulfate 3 GM in Sodium Chloride 0.9% 100 ML IV SCH (11:00)
[2021-03-25] MEDS: Cholecalciferol 1,000 UNITS (25 MCG) TAB PO SCH (11:06)
[2021-03-25] MEDS: Calcium Carbonate 500 MG ChewTAB PO SCH ×2 (11:06→15:04)
[2021-03-25] MEDS: Ezetimibe 10 MG TAB PO SCH (12:12)
[2021-03-25] MEDS ORDERED: Morphine 4 MG/ML VIAL SLOW IVP SCH (14:15)
[2021-03-25] MEDS: Metoprolol Tartrate 25 MG TAB PO SCH (15:58)
[2021-03-25 16:07] LABS: Bacteria/HPF None Seen HPF (None Seen); Bilirubin Negative (Negative); Blood, Urine Negative (Negative); Clarity Clear (Clear); Glucose, Urine (Dipstick) Normal (Negative); Ketone, Urine Negative (Negative); Leukocyte Negative Leu/uL (Negative); Nitrite Negative (Negative); Protein, Urine (Dipstick) Negative (Neg-Trace); RBC/HPF 0-3 HPF (0-3); Specific Gravity, Urine 1.013 (1.002-1.036); Squamous Epithelial 0-3 HPF (0-3); Urobilinogen Normal mg/dL (Less than 2); WBC/HPF 0-3 HPF (0-3)
[2021-03-25 16:09] LABS: Urine Culture Reflex No No
[2021-03-25] MEDS: Sodium Chloride 0.9% 1,000 ML IV SCH (17:59)
[2021-03-25] MEDS ORDERED: Metoprolol Tartrate 25 MG TAB PO SCH (21:00)
[2021-03-25 22:29] LABS: SARS-CoV-2 PCR by NAA Not Detected (NotDetected)
[2021-03-26] MEDS: Calcium Carbonate 500 MG ChewTAB PO SCH ×4 (00:09→22:15)
[2021-03-26] MEDS: Metoprolol Tartrate 25 MG TAB PO SCH ×3 (00:10→22:14)
[2021-03-26] MEDS: Acetaminophen 325 MG TAB PO SCH ×4 (00:10→17:12)
[2021-03-26 06:59] LABS: Mean Corpuscular HGB CONC 32.1 g/dL (32.0-36.0); Mean Corpuscular Volume 93.5 fL (78.0-98.0); Mean Platelet Volume 6.2 fL (7.4-10.4); Platelet Count 625 thou/uL (130-400); RBC Distribution Width 14.6 % (11.5-14.5); Red Blood Cell (RBC) Count 3.35 mill/uL (4.20-5.40); White Blood Cell (WBC) Count 12.1 thou/uL (4.8-10.8)
[2021-03-26 07:14] LABS: Anion Gap 12 mmol/L (10-20); BUN (Urea Nitrogen) 10 mg/dL (9.8-20.1); Calc. Creatinine Clearance 136 mL/min (70-130); Calcium 8.4 mg/dL (7.8-10.44); Carbon Dioxide 20 mmol/L (23-31); Chloride 105 mmol/L (98-107); Glucose 81 mg/dL (83-110); Magnesium 2.2 mg/dL (1.6-2.6); Potassium 3.9 mmol/L (3.5-5.1); Sodium 133 mmol/L (136-145)
[2021-03-26 07:56] LABS: Band 8 % (5-11); Lymphocytes 14 % (21-51); MDiff Complete? YES; Monocytes 7 % (0-10); Neutrophil 71 % (42-75); Platelet Morphology Comment Appears Increased; Polychromasia SLIGHT = 2-3 cells (100X) (0-2/hpf)
[2021-03-26] MEDS ORDERED: Melatonin 3 MG TAB PO PRN (08:15)
[2021-03-26] MEDS: Cholecalciferol 1,000 UNITS (25 MCG) TAB PO SCH (08:49)
[2021-03-26] MEDS: Ezetimibe 10 MG TAB PO SCH (08:49)
[2021-03-26] MEDS: Sodium Chloride 0.9% 1,000 ML IV SCH (08:59)
[2021-03-26] MEDS ORDERED: Sodium Phosphate 30 MMOL in Sodium Chloride 0.9% 250 ML 250 ML IVPB SCH (09:00)
[2021-03-26 12:59] LABS: Anion Gap 12 mmol/L (10-20); BUN (Urea Nitrogen) 11 mg/dL (9.8-20.1); Calc. Creatinine Clearance 138 mL/min (70-130); Calcium 8.4 mg/dL (7.8-10.44); Carbon Dioxide 20 mmol/L (23-31); Chloride 106 mmol/L (98-107); Glucose 85 mg/dL (83-110); Potassium 3.7 mmol/L (3.5-5.1); Sodium 134 mmol/L (136-145)
[2021-03-26] MEDS: Sodium Chloride 308 MEQ in Sterile Water Injection 923 ML IV SCH (13:06)
[2021-03-26] MEDS: Thiamine HCl 200 MG/2 ML VIAL SLOW IVP SCH ×2 (15:35→22:30)
[2021-03-27] MEDS: Acetaminophen 325 MG TAB PO SCH ×5 (06:48→23:56)
[2021-03-27 07:50] LABS: Hemoglobin 10.4 g/dL (12.0-16.0); Mean Corpuscular Hemoglobin 32.4 pg (27.0-31.0); Mean Platelet Volume 6.8 fL (7.4-10.4); Platelet Count 520 thou/uL (130-400); Red Blood Cell (RBC) Count 3.21 mill/uL (4.20-5.40); White Blood Cell (WBC) Count 8.9 thou/uL (4.8-10.8)
[2021-03-27 08:08] LABS: Band 5 % (5-11); Eosinophils 2 % (0-10); Lymphocytes 15 % (21-51); MDiff Complete? YES; Monocytes 3 % (0-10); Neutrophil 75 % (42-75); Platelet Morphology Comment Appears Increased; Polychromasia MODERATE = 3-4 cells (100X) (0-2/hpf)
[2021-03-27 08:12] LABS: Anion Gap 11 mmol/L (10-20); BUN (Urea Nitrogen) 11 mg/dL (9.8-20.1); Calc. Creatinine Clearance 145 mL/min (70-130); Calcium 8.2 mg/dL (7.8-10.44); Carbon Dioxide 19 mmol/L (23-31); Chloride 113 mmol/L (98-107); Glucose 99 mg/dL (83-110); Magnesium 2.2 mg/dL (1.6-2.6); Potassium 3.4 mmol/L (3.5-5.1); Sodium 140 mmol/L (136-145)
[2021-03-27] MEDS: Sodium Chloride 308 MEQ in Sterile Water Injection 923 ML IV SCH (08:14)
[2021-03-27 08:16] LABS: Phosphorus 1.8 mg/dL (2.3-4.7)
[2021-03-27] MEDS ORDERED: Potassium Phosphate 30 MMOL in Sodium Chloride 0.9% 500 ML IVPB SCH (09:00)
[2021-03-27] MEDS: D5 0.9% NS w/ 20 mEq KCl 1,000 ML IV SCH ×2 (10:46→19:57)
[2021-03-27] MEDS: Cholecalciferol 1,000 UNITS (25 MCG) TAB PO SCH (10:47)
[2021-03-27] MEDS: Calcium Carbonate 500 MG ChewTAB PO SCH ×4 (10:47→19:57)
[2021-03-27] MEDS: Metoprolol Tartrate 25 MG TAB PO SCH ×2 (10:47→19:58)
[2021-03-27] MEDS: Ezetimibe 10 MG TAB PO SCH (10:48)
[2021-03-27] MEDS: Thiamine HCl 200 MG/2 ML VIAL SLOW IVP SCH ×3 (10:48→23:57)
[2021-03-27] MEDS ORDERED: Loperamide HCl 2 MG CAP PO PRN (19:49)
[2021-03-27] MEDS: levETIRAcetam 500 MG TAB PO SCH (19:57)
[2021-03-28] MEDS: Ondansetron PF 4 MG/2 ML Vial IVP PRN (00:04)
[2021-03-28] MEDS: Acetaminophen/Codeine 30-300mg Tablet PO PRN ×2 (01:36→19:43)
[2021-03-28] MEDS: Acetaminophen 325 MG TAB PO SCH ×3 (04:55→17:38)
[2021-03-28 06:01] LABS: Anion Gap 10 mmol/L (10-20); BUN (Urea Nitrogen) 7 mg/dL (9.8-20.1); Calc. Creatinine Clearance 147 mL/min (70-130); Calcium 8.3 mg/dL (7.8-10.44); Carbon Dioxide 20 mmol/L (23-31); Chloride 112 mmol/L (98-107); Glucose 99 mg/dL (83-110); Magnesium 2.1 mg/dL (1.6-2.6); Sodium 138 mmol/L (136-145)
[2021-03-28 06:06] LABS: Phosphorus 1.9 mg/dL (2.3-4.7)
[2021-03-28] MEDS ORDERED: Sodium Chloride 1 GM TAB PO SCH (07:15)
[2021-03-28] MEDS ORDERED: Sodium Phosphate 30 MMOL in Sodium Chloride 0.9% 250 ML 250 ML IVPB SCH (08:00)
[2021-03-28] MEDS: levETIRAcetam 500 MG TAB PO SCH ×2 (08:53→19:43)
[2021-03-28] MEDS: Cholecalciferol 1,000 UNITS (25 MCG) TAB PO SCH (08:53)
[2021-03-28] MEDS: Calcium Carbonate 500 MG ChewTAB PO SCH ×3 (08:53→19:43)
[2021-03-28] MEDS: Ezetimibe 10 MG TAB PO SCH (08:53)
[2021-03-28] MEDS: Metoprolol Tartrate 25 MG TAB PO SCH ×2 (08:54→19:51)
[2021-03-28] MEDS: Thiamine HCl 200 MG/2 ML VIAL SLOW IVP SCH ×3 (08:58→19:42)
[2021-03-28] MEDS: Sodium Chloride 1 GM TAB PO SCH ×2 (13:15→19:43)
[2021-03-28] MEDS: D5 0.9% NS w/ 20 mEq KCl 1,000 ML IV SCH ×2 (13:16→19:42)
[2021-03-28] MEDS: Melatonin 3 MG TAB PO SCH (19:44)
[2021-03-29] MEDS: Acetaminophen 325 MG TAB PO SCH ×6 (00:26→23:32)
[2021-03-29] MEDS: Acetaminophen/Codeine 30-300mg Tablet PO PRN ×3 (05:05→22:46)
[2021-03-29] MEDS: Sodium Chloride 1 GM TAB PO SCH (05:05)
[2021-03-29 06:05] LABS: Anion Gap 8 mmol/L (10-20); BUN (Urea Nitrogen) 6 mg/dL (9.8-20.1); Calc. Creatinine Clearance 150 mL/min (70-130); Calcium 8.7 mg/dL (7.8-10.44); Carbon Dioxide 24 mmol/L (23-31); Chloride 109 mmol/L (98-107); Glucose 88 mg/dL (83-110); Magnesium 1.8 mg/dL (1.6-2.6); Phosphorus 3.5 mg/dL (2.3-4.7); Sodium 137 mmol/L (136-145)
[2021-03-29] MEDS: Calcium Carbonate 500 MG ChewTAB PO SCH ×3 (08:16→19:23)
[2021-03-29] MEDS: Ezetimibe 10 MG TAB PO SCH (08:17)
[2021-03-29] MEDS: levETIRAcetam 500 MG TAB PO SCH ×2 (08:17→20:03)
[2021-03-29] MEDS: Metoprolol Tartrate 25 MG TAB PO SCH ×2 (08:17→19:24)
[2021-03-29] MEDS: Cholecalciferol 1,000 UNITS (25 MCG) TAB PO SCH (08:17)
[2021-03-29] MEDS: Thiamine HCl 200 MG/2 ML VIAL SLOW IVP SCH (08:17)
[2021-03-29] MEDS ORDERED: Magnesium 2 GM/50 ML 2 GM in Premix Bag 1 BAG IVPB SCH (10:30)
[2021-03-29] MEDS ORDERED: PHOS-NAK 1 PKT PACK PO SCH (10:30)
[2021-03-29] MEDS: Melatonin 3 MG TAB PO SCH (19:23)
[2021-03-30] MEDS: Acetaminophen/Codeine 30-300mg Tablet PO PRN ×3 (04:28→23:12)
[2021-03-30 05:16] LABS: Anion Gap 11 mmol/L (10-20); BUN (Urea Nitrogen) 6 mg/dL (9.8-20.1); Calc. Creatinine Clearance 140 mL/min (70-130); Calcium 9.2 mg/dL (7.8-10.44); Carbon Dioxide 25 mmol/L (23-31); Chloride 106 mmol/L (98-107); Glucose 83 mg/dL (83-110); Phosphorus 3.5 mg/dL (2.3-4.7); Potassium 3.8 mmol/L (3.5-5.1); Sodium 138 mmol/L (136-145)
[2021-03-30 05:21] LABS: #Eosinphils 0.4 thou/uL (0.0-0.7); #Lymphocytes 1.6 thou/uL (1.20-3.40); #Neutrophils 4.2 thou/uL (1.40-6.50); %Basophils 0.2 % (0.0-1.0); %Lymphocytes 21.7 % (21.0-51.0); %Monocytes 14.2 % (0.0-10.0); %Neutrophils 57.9 % (42.0-75.0); Hemoglobin 10.5 g/dL (12.0-16.0); Mean Corpuscular Hemoglobin 29.6 pg (27.0-31.0); Mean Corpuscular Volume 95.6 fL (78.0-98.0); Mean Platelet Volume 6.8 fL (7.4-10.4); Platelet Count 502 thou/uL (130-400); Red Blood Cell (RBC) Count 3.54 mill/uL (4.20-5.40); White Blood Cell (WBC) Count 7.2 thou/uL (4.8-10.8)
[2021-03-30] MEDS: Acetaminophen 325 MG TAB PO SCH ×4 (06:32→23:13)
[2021-03-30] MEDS: Cholecalciferol 1,000 UNITS (25 MCG) TAB PO SCH (08:59)
[2021-03-30] MEDS: Metoprolol Tartrate 25 MG TAB PO SCH ×2 (08:59→20:43)
[2021-03-30] MEDS: Calcium Carbonate 500 MG ChewTAB PO SCH ×3 (08:59→20:33)
[2021-03-30] MEDS: Ezetimibe 10 MG TAB PO SCH (08:59)
[2021-03-30] MEDS: levETIRAcetam 500 MG TAB PO SCH ×2 (09:00→20:33)
[2021-03-30] MEDS ORDERED: PHOS-NAK 1 PKT PACK PO SCH (11:05)
[2021-03-30] MEDS: Melatonin 3 MG TAB PO SCH (20:34)
[2021-03-30] MEDS: diphenhydrAMINE 25 MG CAP PO PRN (23:13)
[2021-03-31] MEDS: Acetaminophen 325 MG TAB PO SCH ×4 (05:40→23:07)
[2021-03-31] MEDS: levETIRAcetam 500 MG TAB PO SCH ×2 (09:03→21:00)
[2021-03-31] MEDS: Metoprolol Tartrate 25 MG TAB PO SCH ×2 (09:04→21:02)
[2021-03-31] MEDS: Ezetimibe 10 MG TAB PO SCH (09:04)
[2021-03-31] MEDS: Calcium Carbonate 500 MG ChewTAB PO SCH ×3 (09:05→21:02)
[2021-03-31] MEDS: Cholecalciferol 1,000 UNITS (25 MCG) TAB PO SCH (09:05)
[2021-03-31] MEDS: Acetaminophen/Codeine 30-300mg Tablet PO PRN (16:29)
[2021-03-31] MEDS: diphenhydrAMINE 25 MG CAP PO PRN ×2 (16:29→23:07)
[2021-03-31] MEDS: Ondansetron PF 4 MG/2 ML Vial IVP PRN (18:59)
[2021-03-31] MEDS: Melatonin 3 MG TAB PO SCH (21:02)
[2021-04-01] MEDS: Acetaminophen 325 MG TAB PO SCH ×4 (05:36→23:43)
[2021-04-01] MEDS: diphenhydrAMINE 25 MG CAP PO PRN ×3 (05:37→17:49)
[2021-04-01] MEDS: levETIRAcetam 500 MG TAB PO SCH ×2 (08:25→20:37)
[2021-04-01] MEDS: Ezetimibe 10 MG TAB PO SCH (08:25)
[2021-04-01] MEDS: Calcium Carbonate 500 MG ChewTAB PO SCH ×3 (08:25→20:36)
[2021-04-01] MEDS: Cholecalciferol 1,000 UNITS (25 MCG) TAB PO SCH (08:26)
[2021-04-01] MEDS: Metoprolol Tartrate 25 MG TAB PO SCH ×2 (08:26→20:38)
[2021-04-01] MEDS ORDERED: Polyethylene Glycol 3350 17 GM Packet PO SCH (15:30)
[2021-04-01] MEDS: Melatonin 3 MG TAB PO SCH (20:37)
[2021-04-01] MEDS: Acetaminophen/Codeine 30-300mg Tablet PO PRN (22:30)
[2021-04-02] MEDS: Acetaminophen 325 MG TAB PO SCH ×3 (06:27→18:03)
[2021-04-02] MEDS: Metoprolol Tartrate 25 MG TAB PO SCH ×2 (09:45→20:06)
[2021-04-02] MEDS: Calcium Carbonate 500 MG ChewTAB PO SCH ×3 (09:45→20:06)
[2021-04-02] MEDS: Ezetimibe 10 MG TAB PO SCH (09:45)
[2021-04-02] MEDS: levETIRAcetam 500 MG TAB PO SCH ×2 (09:46→20:06)
[2021-04-02] MEDS: Polyethylene Glycol 3350 17 GM Packet PO SCH (09:47)
[2021-04-02] MEDS: Cholecalciferol 1,000 UNITS (25 MCG) TAB PO SCH (09:47)
[2021-04-02] MEDS: diphenhydrAMINE 25 MG CAP PO PRN (12:40)
[2021-04-02 13:03] LABS: SARS-CoV-2 PCR by NAA DETECTED (NotDetected)
[2021-04-02] MEDS: Melatonin 3 MG TAB PO SCH (20:05)
[2021-04-03] MEDS: Acetaminophen 325 MG TAB PO SCH ×5 (00:22→23:07)
[2021-04-03] MEDS: Acetaminophen/Codeine 30-300mg Tablet PO PRN ×3 (01:24→18:49)
[2021-04-03 05:19] LABS: Anion Gap 11 mmol/L (10-20); BUN (Urea Nitrogen) 12 mg/dL (9.8-20.1); Calc. Creatinine Clearance 118 mL/min (70-130); Calcium 9.7 mg/dL (7.8-10.44); Carbon Dioxide 25 mmol/L (23-31); Chloride 102 mmol/L (98-107); Glucose 108 mg/dL (83-110); Potassium 3.8 mmol/L (3.5-5.1); Sodium 134 mmol/L (136-145)
[2021-04-03] MEDS: Sodium Chloride 1 GM TAB PO SCH ×3 (08:43→23:07)
[2021-04-03] MEDS: Sodium Chloride 0.9% 1,000 ML IV SCH ×2 (08:43→23:07)
[2021-04-03] MEDS: diphenhydrAMINE 25 MG CAP PO PRN ×2 (10:00→18:49)
[2021-04-03] MEDS: Calcium Carbonate 500 MG ChewTAB PO SCH ×3 (10:00→21:41)
[2021-04-03] MEDS: Cholecalciferol 1,000 UNITS (25 MCG) TAB PO SCH (10:00)
[2021-04-03] MEDS: Metoprolol Tartrate 25 MG TAB PO SCH ×2 (10:00→21:42)
[2021-04-03] MEDS: Ezetimibe 10 MG TAB PO SCH (10:00)
[2021-04-03] MEDS: levETIRAcetam 500 MG TAB PO SCH ×2 (10:01→21:42)
[2021-04-03] MEDS: Polyethylene Glycol 3350 17 GM Packet PO SCH (10:01)
[2021-04-03] MEDS: Melatonin 3 MG TAB PO SCH (21:41)
[2021-04-04] MEDS: Sodium Chloride 1 GM TAB PO SCH ×3 (05:49→20:46)
[2021-04-04] MEDS: Acetaminophen 325 MG TAB PO SCH ×3 (05:49→18:44)
[2021-04-04 06:25] LABS: Anion Gap 11 mmol/L (10-20); BUN (Urea Nitrogen) 12 mg/dL (9.8-20.1); Calc. Creatinine Clearance 123 mL/min (70-130); Calcium 9.7 mg/dL (7.8-10.44); Carbon Dioxide 24 mmol/L (23-31); Chloride 106 mmol/L (98-107); Glucose 90 mg/dL (83-110); Potassium 4.2 mmol/L (3.5-5.1); Sodium 137 mmol/L (136-145)
[2021-04-04] MEDS: levETIRAcetam 500 MG TAB PO SCH ×2 (10:25→20:46)
[2021-04-04] MEDS: Calcium Carbonate 500 MG ChewTAB PO SCH ×3 (10:25→20:46)
[2021-04-04] MEDS: Metoprolol Tartrate 25 MG TAB PO SCH ×2 (10:27→20:46)
[2021-04-04] MEDS: Ezetimibe 10 MG TAB PO SCH (10:28)
[2021-04-04] MEDS: Cholecalciferol 1,000 UNITS (25 MCG) TAB PO SCH (10:28)
[2021-04-04] MEDS: Polyethylene Glycol 3350 17 GM Packet PO SCH (10:28)
[2021-04-04] MEDS: Acetaminophen/Codeine 30-300mg Tablet PO PRN ×2 (10:29→18:45)
[2021-04-04] MEDS: diphenhydrAMINE 25 MG CAP PO PRN (15:16)
[2021-04-04] MEDS: Melatonin 3 MG TAB PO SCH (20:45)
[2021-04-05] MEDS: Acetaminophen 325 MG TAB PO SCH ×4 (01:28→18:30)
[2021-04-05] MEDS: Sodium Chloride 1 GM TAB PO SCH ×2 (06:14→12:48)
[2021-04-05] MEDS: Calcium Carbonate 500 MG ChewTAB PO SCH ×3 (10:08→20:46)
[2021-04-05] MEDS: Ezetimibe 10 MG TAB PO SCH (10:09)
[2021-04-05] MEDS: Metoprolol Tartrate 25 MG TAB PO SCH ×2 (10:09→20:47)
[2021-04-05] MEDS: Cholecalciferol 1,000 UNITS (25 MCG) TAB PO SCH (10:09)
[2021-04-05] MEDS: levETIRAcetam 500 MG TAB PO SCH ×2 (10:09→20:46)
[2021-04-05] MEDS: Polyethylene Glycol 3350 17 GM Packet PO SCH (10:10)
[2021-04-05] MEDS: diphenhydrAMINE 25 MG CAP PO PRN ×2 (12:19→21:28)
[2021-04-05] MEDS: Acetaminophen/Codeine 30-300mg Tablet PO PRN (12:19)
[2021-04-05 14:10] LABS: Anion Gap 14 mmol/L (10-20); BUN (Urea Nitrogen) 15 mg/dL (9.8-20.1); Calc. Creatinine Clearance 108 mL/min (70-130); Calcium 9.2 mg/dL (7.8-10.44); Carbon Dioxide 21 mmol/L (23-31); Chloride 104 mmol/L (98-107); Glucose 132 mg/dL (83-110); Magnesium 1.7 mg/dL (1.6-2.6); Phosphorus 3.1 mg/dL (2.3-4.7); Potassium 3.8 mmol/L (3.5-5.1); Sodium 135 mmol/L (136-145)
[2021-04-05] MEDS ORDERED: Magnesium Sulfate 3 GM in Sodium Chloride 0.9% 100 ML IV SCH (14:30)
[2021-04-05] MEDS: STERILE WATER IV SCH (14:36)
[2021-04-05] MEDS: SODIUM CHLORIDE IV SCH (14:36)
[2021-04-05] MEDS: Melatonin 3 MG TAB PO SCH (20:45)
[2021-04-06] MEDS: Acetaminophen 325 MG TAB PO SCH ×4 (00:02→18:36)
[2021-04-06] MEDS: Sodium Chloride 1 GM TAB PO SCH ×4 (00:03→22:58)
[2021-04-06] MEDS: Acetaminophen/Codeine 30-300mg Tablet PO PRN ×3 (00:14→16:37)
[2021-04-06 01:32] LABS: Anion Gap 11 mmol/L (10-20); BUN (Urea Nitrogen) 15 mg/dL (9.8-20.1); Calc. Creatinine Clearance 111 mL/min (70-130); Calcium 8.9 mg/dL (7.8-10.44); Carbon Dioxide 22 mmol/L (23-31); Chloride 105 mmol/L (98-107); Glucose 121 mg/dL (83-110); Potassium 3.4 mmol/L (3.5-5.1); Sodium 135 mmol/L (136-145)
[2021-04-06] MEDS: SODIUM CHLORIDE IV SCH ×2 (06:09→22:57)
[2021-04-06] MEDS: STERILE WATER IV SCH ×2 (06:09→22:57)
[2021-04-06] MEDS ORDERED: Magnesium Sulfate 3 GM in Sodium Chloride 0.9% 100 ML IV SCH (06:45)
[2021-04-06 06:50] LABS: Anion Gap 9 mmol/L (10-20); BUN (Urea Nitrogen) 14 mg/dL (9.8-20.1); Calc. Creatinine Clearance 117 mL/min (70-130); Calcium 8.5 mg/dL (7.8-10.44); Carbon Dioxide 24 mmol/L (23-31); Chloride 108 mmol/L (98-107); Glucose 111 mg/dL (83-110); Magnesium 2.4 mg/dL (1.6-2.6); Phosphorus 2.9 mg/dL (2.3-4.7); Potassium 3.8 mmol/L (3.5-5.1); Sodium 137 mmol/L (136-145)
[2021-04-06] MEDS ORDERED: Potassium Phosphate 30 MMOL, Magnesium Sulfate 3 GM in Sodium Chloride 0.9% 250 ML 250 ML IVPB SCH (08:15)
[2021-04-06] MEDS: Polyethylene Glycol 3350 17 GM Packet PO SCH (08:43)
[2021-04-06] MEDS: Cholecalciferol 1,000 UNITS (25 MCG) TAB PO SCH (08:44)
[2021-04-06] MEDS: Calcium Carbonate 500 MG ChewTAB PO SCH ×3 (08:44→20:28)
[2021-04-06] MEDS: Zinc Sulfate 220 MG CAP PO SCH (08:46)
[2021-04-06] MEDS: Ezetimibe 10 MG TAB PO SCH (08:46)
[2021-04-06] MEDS: levETIRAcetam 500 MG TAB PO SCH ×2 (08:46→20:29)
[2021-04-06] MEDS: Metoprolol Tartrate 25 MG TAB PO SCH ×2 (08:46→20:29)
[2021-04-06] MEDS ORDERED: Cholecalciferol (Vitamin D3) 400 UNITS TAB PO SCH (09:00)
[2021-04-06] MEDS ORDERED: Polyethylene Glycol 3350 17 GM Packet PO SCH (09:00)
[2021-04-06] MEDS: Senokot S 8.6-50 MG TAB PO SCH ×2 (09:40→20:28)
[2021-04-06 10:24] LABS: Bilirubin Negative (Negative); Blood, Urine 1+ (Negative); Clarity Turbid (Clear); Glucose, Urine (Dipstick) Normal (Negative); Ketone, Urine Negative (Negative); Leukocyte 500 Leu/uL (Negative); Nitrite 2+ (Negative); Protein, Urine (Dipstick) 30 mg/dL (Neg-Trace); Specific Gravity, Urine 1.014 (1.002-1.036); Urobilinogen Normal mg/dL (Less than 2); pH, Urine 5.5 (5.0-9.0)
[2021-04-06] MEDS: diphenhydrAMINE 25 MG CAP PO PRN ×2 (12:01→22:58)
[2021-04-06 12:13] LABS: Sodium 136 mmol/L (136-145)
[2021-04-06 16:36] LABS: Sodium 137 mmol/L (136-145)
[2021-04-06] MEDS: Melatonin 3 MG TAB PO SCH (20:28)
[2021-04-06] MEDS ORDERED: Nitrofurantoin Monohyd/M-Cryst 100 MG CAP PO SCH (21:00)
[2021-04-06 22:09] LABS: Sodium 133 mmol/L (136-145)
[2021-04-06 22:39] LABS: Magnesium 2.3 mg/dL (1.6-2.6)
[2021-04-06 23:25] LABS: SARS-CoV-2 PCR by NAA DETECTED (NotDetected)
[2021-04-07] MEDS: Acetaminophen 325 MG TAB PO SCH ×5 (00:46→22:58)
[2021-04-07] MEDS: cefTRIAXone\\ROCEPHIN 1 GM in Sodium Chloride 0.9% 100 ML IVPB SCH ×2 (01:41→22:59)
[2021-04-07] MEDS: Sodium Chloride 1 GM TAB PO SCH ×3 (06:41→22:58)
[2021-04-07 06:55] LABS: #Lymphocytes 0.8 thou/uL (1.20-3.40); #Monocytes 1.2 thou/uL (0.11-0.59); #Neutrophils 7.6 thou/uL (1.40-6.50); %Basophils 0.1 % (0.0-1.0); %Eosinophils 0.5 % (0.0-10.0); %Lymphocytes 8.2 % (21.0-51.0); %Monocytes 12.4 % (0.0-10.0); %Neutrophils 78.8 % (42.0-75.0); Hemoglobin 9.2 g/dL (12.0-16.0); Mean Corpuscular HGB CONC 32.4 g/dL (32.0-36.0); Mean Corpuscular Volume 95.4 fL (78.0-98.0); Mean Platelet Volume 7.1 fL (7.4-10.4); Platelet Count 307 thou/uL (130-400); RBC Distribution Width 14.5 % (11.5-14.5); Red Blood Cell (RBC) Count 2.98 mill/uL (4.20-5.40); White Blood Cell (WBC) Count 9.7 thou/uL (4.8-10.8)
[2021-04-07 07:16] LABS: Anion Gap 11 mmol/L (10-20); BUN (Urea Nitrogen) 10 mg/dL (9.8-20.1); Calc. Creatinine Clearance 137 mL/min (70-130); Carbon Dioxide 20 mmol/L (23-31); Chloride 111 mmol/L (98-107); Glucose 95 mg/dL (83-110); Potassium 3.8 mmol/L (3.5-5.1); Sodium 138 mmol/L (136-145)
[2021-04-07 07:17] LABS: Phosphorus 2.1 mg/dL (2.3-4.7)
[2021-04-07] MEDS: Calcium Carbonate 500 MG ChewTAB PO SCH ×3 (09:55→21:04)
[2021-04-07] MEDS: Metoprolol Tartrate 25 MG TAB PO SCH ×2 (09:55→21:07)
[2021-04-07] MEDS: Senokot S 8.6-50 MG TAB PO SCH ×2 (09:55→21:07)
[2021-04-07] MEDS: Zinc Sulfate 220 MG CAP PO SCH (09:57)
[2021-04-07] MEDS: Ezetimibe 10 MG TAB PO SCH (09:57)
[2021-04-07] MEDS: levETIRAcetam 500 MG TAB PO SCH ×2 (09:57→21:04)
[2021-04-07] MEDS: Cholecalciferol 1,000 UNITS (25 MCG) TAB PO SCH (09:57)
[2021-04-07] MEDS: Polyethylene Glycol 3350 17 GM Packet PO SCH ×2 (09:59→10:15)
[2021-04-07] MEDS: Acetaminophen/Codeine 30-300mg Tablet PO PRN (12:34)
[2021-04-07] MEDS: diphenhydrAMINE 25 MG CAP PO PRN (12:34)
[2021-04-07 17:17] LABS: Sodium 140 mmol/L (136-145)
[2021-04-07] MEDS ORDERED: Famotidine 20 MG TAB PO SCH (17:45)
[2021-04-07 20:25] LABS: Sodium 139 mmol/L (136-145)
[2021-04-07] MEDS: Melatonin 3 MG TAB PO SCH (21:06)
[2021-04-07] MEDS: Famotidine 20 MG TAB PO SCH (21:07)
[2021-04-08 05:33] LABS: Sodium 137 mmol/L (136-145)
[2021-04-08] MEDS: Acetaminophen 325 MG TAB PO SCH ×3 (05:57→18:48)
[2021-04-08] MEDS: Sodium Chloride 1 GM TAB PO SCH ×2 (05:57→13:58)
[2021-04-08] MEDS: Cephalexin 250 MG CAP PO SCH ×4 (09:21→20:07)
[2021-04-08] MEDS: Calcium Carbonate 500 MG ChewTAB PO SCH ×3 (09:21→20:06)
[2021-04-08] MEDS: Megestrol Acetate 40 MG TAB PO SCH (09:21)
[2021-04-08] MEDS: Cholecalciferol 1,000 UNITS (25 MCG) TAB PO SCH (09:22)
[2021-04-08] MEDS: levETIRAcetam 500 MG TAB PO SCH ×2 (09:22→20:07)
[2021-04-08] MEDS: Senokot S 8.6-50 MG TAB PO SCH ×3 (09:22→20:09)
[2021-04-08] MEDS: Ezetimibe 10 MG TAB PO SCH (09:23)
[2021-04-08] MEDS: Metoprolol Tartrate 25 MG TAB PO SCH ×2 (09:23→20:08)
[2021-04-08] MEDS: Zinc Sulfate 220 MG CAP PO SCH (09:23)
[2021-04-08] MEDS: Famotidine 20 MG TAB PO SCH ×2 (09:23→20:07)
[2021-04-08] MEDS: Polyethylene Glycol 3350 17 GM Packet PO SCH (09:24)
[2021-04-08] MEDS: diphenhydrAMINE 25 MG CAP PO PRN (09:37)
[2021-04-08] MEDS: Acetaminophen/Codeine 30-300mg Tablet PO PRN ×2 (11:11→18:49)
[2021-04-08] MEDS ORDERED: Loperamide HCl 2 MG CAP PO PRN (13:38)
[2021-04-08] MEDS: Melatonin 3 MG TAB PO SCH (20:06)
[2021-04-09] MEDS: Acetaminophen/Codeine 30-300mg Tablet PO PRN ×5 (00:34→23:31)
[2021-04-09] MEDS: Acetaminophen 325 MG TAB PO SCH ×5 (00:35→23:32)
[2021-04-09] MEDS: Sodium Chloride 1 GM TAB PO SCH ×4 (00:35→23:31)
[2021-04-09 08:36] VITALS: BMI 39.8
[2021-04-09] MEDS: Metoprolol Tartrate 25 MG TAB PO SCH ×2 (09:51→20:29)
[2021-04-09] MEDS: Calcium Carbonate 500 MG ChewTAB PO SCH ×3 (09:51→20:29)
[2021-04-09] MEDS: Famotidine 20 MG TAB PO SCH ×2 (09:51→20:29)
[2021-04-09] MEDS: Cephalexin 250 MG CAP PO SCH ×4 (09:51→20:30)
[2021-04-09] MEDS: Cholecalciferol 1,000 UNITS (25 MCG) TAB PO SCH (09:51)
[2021-04-09] MEDS: Ezetimibe 10 MG TAB PO SCH (09:51)
[2021-04-09] MEDS: levETIRAcetam 500 MG TAB PO SCH ×2 (09:52→20:30)
[2021-04-09] MEDS: Zinc Sulfate 220 MG CAP PO SCH (09:52)
[2021-04-09] MEDS: Megestrol Acetate 40 MG TAB PO SCH (09:52)
[2021-04-09] MEDS: diphenhydrAMINE 25 MG CAP PO PRN ×2 (11:53→20:29)
[2021-04-09] MEDS: Polyethylene Glycol 3350 17 GM Packet PO SCH (11:54)
[2021-04-09] MEDS: Senokot S 8.6-50 MG TAB PO SCH ×2 (11:54→20:29)
[2021-04-09] MEDS: Melatonin 3 MG TAB PO SCH (20:30)
[2021-04-10] MEDS: Sodium Chloride 1 GM TAB PO SCH ×2 (05:10→19:05)
[2021-04-10] MEDS: Acetaminophen/Codeine 30-300mg Tablet PO PRN ×2 (05:10→19:14)
[2021-04-10] MEDS: Acetaminophen 325 MG TAB PO SCH ×3 (05:10→19:13)
[2021-04-10] MEDS: Polyethylene Glycol 3350 17 GM Packet PO SCH (09:09)
[2021-04-10] MEDS: Cholecalciferol 1,000 UNITS (25 MCG) TAB PO SCH (09:10)
[2021-04-10] MEDS: Calcium Carbonate 500 MG ChewTAB PO SCH ×3 (09:10→21:38)
[2021-04-10] MEDS: Ezetimibe 10 MG TAB PO SCH (09:10)
[2021-04-10] MEDS: Senokot S 8.6-50 MG TAB PO SCH ×2 (09:10→21:38)
[2021-04-10] MEDS: levETIRAcetam 500 MG TAB PO SCH ×2 (09:10→21:38)
[2021-04-10] MEDS: Famotidine 20 MG TAB PO SCH ×2 (09:11→21:38)
[2021-04-10] MEDS: Metoprolol Tartrate 25 MG TAB PO SCH ×2 (09:11→21:38)
[2021-04-10] MEDS: Cephalexin 250 MG CAP PO SCH ×4 (09:13→21:39)
[2021-04-10] MEDS: Megestrol Acetate 40 MG TAB PO SCH (09:13)
[2021-04-10] MEDS: Zinc Sulfate 220 MG CAP PO SCH (09:13)
[2021-04-10] MEDS: diphenhydrAMINE 25 MG CAP PO PRN ×2 (14:20→19:14)
[2021-04-10] MEDS: Melatonin 3 MG TAB PO SCH (21:38)
[2021-04-11] MEDS: Acetaminophen 325 MG TAB PO SCH ×4 (00:29→17:46)
[2021-04-11] MEDS: Sodium Chloride 1 GM TAB PO SCH ×3 (00:29→15:02)
[2021-04-11] MEDS: Acetaminophen/Codeine 30-300mg Tablet PO PRN ×4 (00:30→17:46)
[2021-04-11] MEDS: Zinc Sulfate 220 MG CAP PO SCH (08:51)
[2021-04-11] MEDS: levETIRAcetam 500 MG TAB PO SCH ×2 (08:51→20:20)
[2021-04-11] MEDS: Senokot S 8.6-50 MG TAB PO SCH ×2 (08:51→20:20)
[2021-04-11] MEDS: Megestrol Acetate 40 MG TAB PO SCH (08:51)
[2021-04-11] MEDS: Cephalexin 250 MG CAP PO SCH ×4 (08:52→20:20)
[2021-04-11] MEDS: Ezetimibe 10 MG TAB PO SCH (08:52)
[2021-04-11] MEDS: Metoprolol Tartrate 25 MG TAB PO SCH ×2 (08:52→20:20)
[2021-04-11] MEDS: Calcium Carbonate 500 MG ChewTAB PO SCH ×3 (08:52→20:18)
[2021-04-11] MEDS: Famotidine 20 MG TAB PO SCH ×2 (08:52→20:20)
[2021-04-11] MEDS: Cholecalciferol 1,000 UNITS (25 MCG) TAB PO SCH (08:52)
[2021-04-11] MEDS: Polyethylene Glycol 3350 17 GM Packet PO SCH (08:52)
[2021-04-11] MEDS: diphenhydrAMINE 25 MG CAP PO PRN (17:51)
[2021-04-11] MEDS: Melatonin 3 MG TAB PO SCH (20:20)
[2021-04-12] MEDS: Acetaminophen 325 MG TAB PO SCH ×5 (01:12→23:04)
[2021-04-12] MEDS: Sodium Chloride 1 GM TAB PO SCH ×4 (01:13→21:17)
[2021-04-12] MEDS: diphenhydrAMINE 25 MG CAP PO PRN (05:41)
[2021-04-12] MEDS: Megestrol Acetate 40 MG TAB PO SCH (09:11)
[2021-04-12] MEDS: Zinc Sulfate 220 MG CAP PO SCH (09:11)
[2021-04-12] MEDS: Calcium Carbonate 500 MG ChewTAB PO SCH ×3 (09:11→21:17)
[2021-04-12] MEDS: Metoprolol Tartrate 25 MG TAB PO SCH ×2 (09:11→21:19)
[2021-04-12] MEDS: Cholecalciferol 1,000 UNITS (25 MCG) TAB PO SCH (09:11)
[2021-04-12] MEDS: Cephalexin 250 MG CAP PO SCH ×4 (09:11→21:17)
[2021-04-12] MEDS: Acetaminophen/Codeine 30-300mg Tablet PO PRN ×2 (09:12→23:04)
[2021-04-12] MEDS: levETIRAcetam 500 MG TAB PO SCH ×2 (09:12→21:18)
[2021-04-12] MEDS: Amlodipine 5 MG TAB PO SCH (09:12)
[2021-04-12] MEDS: Famotidine 20 MG TAB PO SCH ×2 (09:13→21:18)
[2021-04-12] MEDS: Polyethylene Glycol 3350 17 GM Packet PO SCH (09:13)
[2021-04-12] MEDS: Senokot S 8.6-50 MG TAB PO SCH ×2 (09:13→21:17)
[2021-04-12] MEDS: Ezetimibe 10 MG TAB PO SCH (09:13)
[2021-04-12] MEDS: Melatonin 3 MG TAB PO SCH (21:17)
[2021-04-12] MEDS: Lisinopril 20 MG TAB PO SCH (21:19)
[2021-04-13] MEDS: Acetaminophen 325 MG TAB PO SCH ×4 (05:39→23:36)
[2021-04-13] MEDS: diphenhydrAMINE 25 MG CAP PO PRN ×3 (05:39→17:45)
[2021-04-13] MEDS: Acetaminophen/Codeine 30-300mg Tablet PO PRN ×4 (05:40→23:31)
[2021-04-13] MEDS: Sodium Chloride 1 GM TAB PO SCH ×3 (05:40→23:31)
[2021-04-13] MEDS: Ezetimibe 10 MG TAB PO SCH (09:05)
[2021-04-13] MEDS: levETIRAcetam 500 MG TAB PO SCH ×2 (09:05→21:21)
[2021-04-13] MEDS: Calcium Carbonate 500 MG ChewTAB PO SCH ×3 (09:06→21:20)
[2021-04-13] MEDS: Megestrol Acetate 40 MG TAB PO SCH (09:06)
[2021-04-13] MEDS: Metoprolol Tartrate 25 MG TAB PO SCH ×2 (09:06→21:22)
[2021-04-13] MEDS: Zinc Sulfate 220 MG CAP PO SCH (09:07)
[2021-04-13] MEDS: Famotidine 20 MG TAB PO SCH ×2 (09:07→21:21)
[2021-04-13] MEDS: Amlodipine 5 MG TAB PO SCH (09:08)
[2021-04-13] MEDS: Cephalexin 250 MG CAP PO SCH (09:08)
[2021-04-13] MEDS: Senokot S 8.6-50 MG TAB PO SCH ×3 (09:08→21:39)
[2021-04-13] MEDS: Polyethylene Glycol 3350 17 GM Packet PO SCH (09:08)
[2021-04-13] MEDS: Cholecalciferol 1,000 UNITS (25 MCG) TAB PO SCH (09:08)
[2021-04-13] MEDS: Ondansetron PF 4 MG/2 ML Vial IVP PRN ×2 (11:45→18:12)
[2021-04-13] MEDS ORDERED: Promethazine HCl 25 MG/ML VIAL IM PRN (16:36)
[2021-04-13 18:41] LABS: SARS-CoV-2 PCR by NAA Not Detected (NotDetected)
[2021-04-13] MEDS: Lisinopril 20 MG TAB PO SCH (21:20)
[2021-04-13] MEDS: Melatonin 3 MG TAB PO SCH (21:21)
[2021-04-14] MEDS: Sodium Chloride 1 GM TAB PO SCH ×2 (05:21→16:15)
[2021-04-14] MEDS: Acetaminophen/Codeine 30-300mg Tablet PO PRN ×3 (05:21→21:01)
[2021-04-14] MEDS: Acetaminophen 325 MG TAB PO SCH ×3 (05:21→18:13)
[2021-04-14] MEDS: Calcium Carbonate 500 MG ChewTAB PO SCH ×3 (09:15→20:55)
[2021-04-14] MEDS: Senokot S 8.6-50 MG TAB PO SCH (09:15)
[2021-04-14] MEDS: Polyethylene Glycol 3350 17 GM Packet PO SCH (09:15)
[2021-04-14] MEDS: Metoprolol Tartrate 25 MG TAB PO SCH ×2 (09:16→20:54)
[2021-04-14] MEDS: Famotidine 20 MG TAB PO SCH ×2 (09:19→20:56)
[2021-04-14] MEDS: levETIRAcetam 500 MG TAB PO SCH ×2 (09:19→20:55)
[2021-04-14] MEDS: Zinc Sulfate 220 MG CAP PO SCH (09:19)
[2021-04-14] MEDS: Megestrol Acetate 40 MG TAB PO SCH (09:19)
[2021-04-14] MEDS: Ezetimibe 10 MG TAB PO SCH (09:19)
[2021-04-14] MEDS: Cholecalciferol 1,000 UNITS (25 MCG) TAB PO SCH (09:20)
[2021-04-14] MEDS: Amlodipine 5 MG TAB PO SCH ×2 (09:21→09:23)
[2021-04-14] MEDS: diphenhydrAMINE 25 MG CAP PO PRN ×2 (12:15→18:13)
[2021-04-14] MEDS: Melatonin 3 MG TAB PO SCH (20:55)
[2021-04-14] MEDS: Lisinopril 20 MG TAB PO SCH (20:56)
[2021-04-15] MEDS: Acetaminophen 325 MG TAB PO SCH ×4 (00:09→17:06)
[2021-04-15] MEDS: Senokot S 8.6-50 MG TAB PO SCH ×3 (01:16→19:21)
[2021-04-15] MEDS: Sodium Chloride 1 GM TAB PO SCH ×3 (01:17→14:18)
[2021-04-15] MEDS: Acetaminophen/Codeine 30-300mg Tablet PO PRN ×3 (03:24→20:50)
[2021-04-15] MEDS: Calcium Carbonate 500 MG ChewTAB PO SCH ×3 (09:03→19:20)
[2021-04-15] MEDS: Polyethylene Glycol 3350 17 GM Packet PO SCH (09:03)
[2021-04-15] MEDS: levETIRAcetam 500 MG TAB PO SCH ×2 (09:04→19:21)
[2021-04-15] MEDS: Megestrol Acetate 40 MG TAB PO SCH (09:05)
[2021-04-15] MEDS: Amlodipine 5 MG TAB PO SCH (09:05)
[2021-04-15] MEDS: Metoprolol Tartrate 25 MG TAB PO SCH ×2 (09:05→19:21)
[2021-04-15] MEDS: Ezetimibe 10 MG TAB PO SCH (09:05)
[2021-04-15] MEDS: Famotidine 20 MG TAB PO SCH ×2 (09:05→19:20)
[2021-04-15] MEDS: Cholecalciferol 1,000 UNITS (25 MCG) TAB PO SCH (09:06)
[2021-04-15] MEDS: Zinc Sulfate 220 MG CAP PO SCH (09:06)
[2021-04-15] MEDS: Melatonin 3 MG TAB PO SCH (19:20)
[2021-04-15] MEDS: Lisinopril 20 MG TAB PO SCH (19:21)
[2021-04-16] MEDS: Acetaminophen 325 MG TAB PO SCH ×5 (00:03→23:45)
[2021-04-16] MEDS: Sodium Chloride 1 GM TAB PO SCH ×4 (00:03→23:45)
[2021-04-16] MEDS: Acetaminophen/Codeine 30-300mg Tablet PO PRN ×2 (03:21→20:59)
[2021-04-16] MEDS: Senokot S 8.6-50 MG TAB PO SCH ×2 (09:23→19:33)
[2021-04-16] MEDS: Polyethylene Glycol 3350 17 GM Packet PO SCH (09:23)
[2021-04-16] MEDS: Ezetimibe 10 MG TAB PO SCH (09:23)
[2021-04-16] MEDS: levETIRAcetam 500 MG TAB PO SCH ×2 (09:24→19:31)
[2021-04-16] MEDS: Famotidine 20 MG TAB PO SCH ×2 (09:24→19:32)
[2021-04-16] MEDS: Calcium Carbonate 500 MG ChewTAB PO SCH ×3 (09:25→19:30)
[2021-04-16] MEDS: Megestrol Acetate 40 MG TAB PO SCH (09:25)
[2021-04-16] MEDS: Zinc Sulfate 220 MG CAP PO SCH (09:26)
[2021-04-16] MEDS: Amlodipine 5 MG TAB PO SCH (09:26)
[2021-04-16] MEDS: Metoprolol Tartrate 25 MG TAB PO SCH ×2 (09:26→19:32)
[2021-04-16] MEDS: Cholecalciferol 1,000 UNITS (25 MCG) TAB PO SCH (09:26)
[2021-04-16] MEDS: Melatonin 3 MG TAB PO SCH (19:31)
[2021-04-16] MEDS: Lisinopril 20 MG TAB PO SCH (19:32)
[2021-04-17] MEDS: Acetaminophen/Codeine 30-300mg Tablet PO PRN (04:17)
[2021-04-17] MEDS: Acetaminophen 325 MG TAB PO SCH ×2 (06:03→12:28)
[2021-04-17] MEDS: Sodium Chloride 1 GM TAB PO SCH ×2 (06:24→15:45)
[2021-04-17] MEDS: Famotidine 20 MG TAB PO SCH (09:20)
[2021-04-17] MEDS: Amlodipine 5 MG TAB PO SCH (09:21)
[2021-04-17] MEDS: levETIRAcetam 500 MG TAB PO SCH (09:21)
[2021-04-17] MEDS: Cholecalciferol 1,000 UNITS (25 MCG) TAB PO SCH (09:21)
[2021-04-17] MEDS: Megestrol Acetate 40 MG TAB PO SCH (09:21)
[2021-04-17] MEDS: Zinc Sulfate 220 MG CAP PO SCH (09:21)
[2021-04-17] MEDS: Calcium Carbonate 500 MG ChewTAB PO SCH ×2 (09:21→15:46)
[2021-04-17] MEDS: Ezetimibe 10 MG TAB PO SCH (09:21)
[2021-04-17] MEDS: Polyethylene Glycol 3350 17 GM Packet PO SCH (09:22)
[2021-04-17] MEDS: Metoprolol Tartrate 25 MG TAB PO SCH (09:22)
[2021-04-17] MEDS: Senokot S 8.6-50 MG TAB PO SCH (09:22)
[2021-04-17] MEDS ORDERED: Aspirin 81 mg Enteric Coated Tablet PO SCH (13:15)
[2021-04-17 16:04] VITALS: BP 134/85; TEMP 98.5
[2021-04-18] MEDS ORDERED: Aspirin 81 mg Enteric Coated Tablet PO SCH (09:00)
== END 2021-04-17 17:25 | DRG 25 ==
LOC: ERS 13:58 → UNDOADMIN 15:49 → CCU 15:49 → IMCU/EMU 03-21 02:28 → SURG B 03-21 14:33 → SURG A 03-25 18:48
PROVIDERS: ADMIT Surgery; ATTEND Surgery
PROC: 00C40ZZ Extirpation of Matter from Intracranial Subdural Space, Open Approach (ICD-10-PCS; principal; 2021-03-18)
PROC: 0BH17EZ Insertion of Endotracheal Airway into Trachea, Via Natural or Artificial Opening (ICD-10-PCS; 2021-03-18)
PROC: 5A1935Z Respiratory Ventilation, Less than 24 Consecutive Hours (ICD-10-PCS; 2021-03-18)
PROC: 0D9670Z Drainage of Stomach with Drainage Device, Via Natural or Artificial Opening (ICD-10-PCS; 2021-03-18)
PROC: 30233N1 Transfusion of Nonautologous Red Blood Cells into Peripheral Vein, Percutaneous Approach (ICD-10-PCS; 2021-03-18)
PROC: 3E033XZ Introduction of Vasopressor into Peripheral Vein, Percutaneous Approach (ICD-10-PCS; 2021-03-18)
PROC: 8E0ZXY6 Isolation (ICD-10-PCS; 2021-04-01)
DX: S06.5X9A Traumatic subdural hemorrhage with loss of consciousness of unspecified duration, initial encounter (principal); U07.1 COVID-19; J96.01 Acute respiratory failure with hypoxia; G93.6 Cerebral edema; G93.41 Metabolic encephalopathy; I48.20 Chronic atrial fibrillation, unspecified; D62 Acute posthemorrhagic anemia; D68.9 Coagulation defect, unspecified; E87.1 Hypo-osmolality and hyponatremia; N39.0 Urinary tract infection, site not specified; Z20.822 Contact with and (suspected) exposure to COVID-19; R29.6 Repeated falls; I10 Essential (primary) hypertension; M19.90 Unspecified osteoarthritis, unspecified site; Z96.642 Presence of left artificial hip joint; Z96.653 Presence of artificial knee joint, bilateral; K21.9 Gastro-esophageal reflux disease without esophagitis; D72.829 Elevated white blood cell count, unspecified; W18.30XA Fall on same level, unspecified, initial encounter; E83.42 Hypomagnesemia; B96.20 Unspecified Escherichia coli [E. coli] as the cause of diseases classified elsewhere; E83.39 Other disorders of phosphorus metabolism; E87.6 Hypokalemia; E87.5 Hyperkalemia; Z78.1 Physical restraint status; Z87.442 Personal history of urinary calculi; Z98.890 Other specified postprocedural states; Z98.84 Bariatric surgery status; Z95.5 Presence of coronary angioplasty implant and graft; Z98.42 Cataract extraction status, left eye; Z98.41 Cataract extraction status, right eye; Z79.02 Long term (current) use of antithrombotics/antiplatelets; M25.552 Pain in left hip
CPT/HCPCS: 31500; 36415; 36416; 36430; 36600; 70450; 70551; 71045; 71260; 72125; 72170; 74018; 74177; 74230; 80048; 80053; 81001; 81003; 82140; 82805; 83605; 83735; 84100; 84146; 84295; 85007; 85025; 85027; 85610; 85730; 86850; 86900; 86901; 87040; 87077; 87086; 87149; 87186; 93005; 93970; 94002; 94003; 94640; 96374; 96375; 99292; A4217; G0390; J0153; J0171; J0360; J0690; J0696; J1200; J1630; J2001; J2060; J2250; J2270; J2370; J2405; J2704; J3010; J3411; J3475; J3480; J3490; J7030; J7050; J7620; P9016; S0028; S0179; U0002; U0003; U0005

== ENCOUNTER 2021-05-15 12:37 | Outpatient (CLI) | payer OTHER | END 2021-05-15 12:38 | disposition home or self-care (01) | LOC: CT 12:37 | PROVIDERS: ATTEND Oral & Maxillofacial Surgery | DX: I62.03 Nontraumatic chronic subdural hemorrhage (principal) | CPT/HCPCS: 70450 ==

== ENCOUNTER 2025-03-09 13:13 | Outpatient (CLI) | payer OTHER ==
[2025-03-09 14:09] LABS: #Basophils 0.04 10x3/uL (0.0-0.2); #Eosinophils 0.20 10x3/uL (0.0-0.7); #Monocytes 0.70 10x3/uL (0.11-0.59); #Neutrophils 6.16 10x3/uL (1.40-6.50); %Basophils 0.5 % (0.0-1.0); %Eosinophils 2.3 % (0.0-10.0); %Lymphocytes 16.6 % (21.0-51.0); %Monocytes 8.2 % (0.0-10.0); %Neutrophils 72.0 % (42.0-75.0); Hematocrit 39.9 % (36.0-47.0); Hemoglobin 12.9 g/dL (12.0-16.0); Mean Corpuscular Hemoglobin 30.5 pg (27.0-31.0); Mean Corpuscular Volume 94.3 fL (78.0-98.0); Platelet Count 347 10x3/uL (130-400); Red Blood Cell (RBC) Count 4.23 mill/uL (4.20-5.40); White Blood Cell (WBC) Count 8.55 10x3/uL (4.8-10.8)
[2025-03-09 14:25] LABS: INR-International Normal Ratio 1.1; PTT 27.3 sec (22.9-36.1); Prothrombin Time 14.1 sec (12.0-14.7)
[2025-03-09 14:27] LABS: ALT (SGPT) 18 U/L (Less than 34); AST (SGOT) 33 U/L (11-34); Albumin 3.4 g/dL (3.1-4.5); Alkaline Phosphatase 51 U/L (40-110); Anion Gap 13 mmol/L (10-20); BUN (Urea Nitrogen) 14 mg/dL (9.8-20.1); Bilirubin, Total 0.3 mg/dL (0.3-1.2); Calc. Creatinine Clearance 0 mL/min (70-130); Calcium 9.6 mg/dL (7.8-10.44); Carbon Dioxide 24 mmol/L (23-31); Chloride 108 mmol/L (98-107); Globulin 3.1 g/dL (2.4-3.5); Glucose 100 mg/dL (83-110); Potassium 3.7 mmol/L (3.5-5.1); Sodium 141 mmol/L (136-145)
== END 2025-03-09 13:14 | disposition home or self-care (01) ==
LOC: LABBT 13:13
PROVIDERS: ATTEND Internal Medicine Cardiovascular Disease
DX: Z01.818 Encounter for other preprocedural examination (principal); I48.0 Paroxysmal atrial fibrillation; I62.9 Nontraumatic intracranial hemorrhage, unspecified
CPT/HCPCS: 80053; 85025; 85610; 85730; 86850; 86900; 86901; 93005; 93010

== ENCOUNTER 2025-03-09 13:30 | Inpatient (IN) | payer OTHER ==
[2025-03-09 13:29] VITALS: BMI 27.6
[2025-03-09 14:09] LABS: #Basophils 0.04 10x3/uL (0.0-0.2); #Eosinophils 0.20 10x3/uL (0.0-0.7); #Monocytes 0.70 10x3/uL (0.11-0.59); #Neutrophils 6.16 10x3/uL (1.40-6.50); %Basophils 0.5 % (0.0-1.0); %Eosinophils 2.3 % (0.0-10.0); %Lymphocytes 16.6 % (21.0-51.0); %Monocytes 8.2 % (0.0-10.0); %Neutrophils 72.0 % (42.0-75.0); Hematocrit 39.9 % (36.0-47.0); Hemoglobin 12.9 g/dL (12.0-16.0); Mean Corpuscular Hemoglobin 30.5 pg (27.0-31.0); Mean Corpuscular Volume 94.3 fL (78.0-98.0); Platelet Count 347 10x3/uL (130-400); Red Blood Cell (RBC) Count 4.23 mill/uL (4.20-5.40); White Blood Cell (WBC) Count 8.55 10x3/uL (4.8-10.8)
[2025-03-09 14:25] LABS: INR-International Normal Ratio 1.1; PTT 27.3 sec (22.9-36.1); Prothrombin Time 14.1 sec (12.0-14.7)
[2025-03-09 14:27] LABS: ALT (SGPT) 18 U/L (Less than 34); AST (SGOT) 33 U/L (11-34); Albumin 3.4 g/dL (3.1-4.5); Alkaline Phosphatase 51 U/L (40-110); Anion Gap 13 mmol/L (10-20); BUN (Urea Nitrogen) 14 mg/dL (9.8-20.1); Bilirubin, Total 0.3 mg/dL (0.3-1.2); Calc. Creatinine Clearance 0 mL/min (70-130); Calcium 9.6 mg/dL (7.8-10.44); Carbon Dioxide 24 mmol/L (23-31); Chloride 108 mmol/L (98-107); Globulin 3.1 g/dL (2.4-3.5); Glucose 100 mg/dL (83-110); Potassium 3.7 mmol/L (3.5-5.1); Sodium 141 mmol/L (136-145)
[2025-03-15] MEDS ORDERED: Iopamidol 370 76% 100 ML VIAL ONE (09:39)
[2025-03-15] MEDS ORDERED: CEFAZOLIN 2 GM VIAL ONE (11:23)
[2025-03-15] MEDS ORDERED: Heparin 10,000 UNITS/ 10 ML VIAL ONE (11:23)
[2025-03-15] MEDS ORDERED: SUGAMMADEX SODIUM 200 MG/2 ML VIAL ONE (12:09)
[2025-03-15] MEDS ORDERED: Rocuronium Bromide 10 MG/ML (10ML VIAL) ONE (12:26)
[2025-03-15] MEDS ORDERED: Lidocaine 1% PF 5 ML VIAL ONE (12:26)
[2025-03-15] MEDS ORDERED: PROPOFOL 200 MG/20 ML VIAL ONE (12:26)
[2025-03-15] MEDS ORDERED: Ondansetron PF 4 MG/2 ML Vial ONE (12:26)
== END 2025-03-15 17:45 | disposition home or self-care (01) | DRG 274 ==
LOC: SURG A 03-15 08:17
PROVIDERS: ADMIT Internal Medicine Cardiovascular Disease; ATTEND Internal Medicine Cardiovascular Disease
PROC: 02L73DK Occlusion of Left Atrial Appendage with Intraluminal Device, Percutaneous Approach (ICD-10-PCS; principal; 2025-03-15)
PROC: B24BZZ4 Ultrasonography of Heart with Aorta, Transesophageal (ICD-10-PCS; 2025-03-15)
DX: I48.0 Paroxysmal atrial fibrillation (principal); Z00.6 Encounter for examination for normal comparison and control in clinical research program; Z96.642 Presence of left artificial hip joint; Z96.653 Presence of artificial knee joint, bilateral; F41.9 Anxiety disorder, unspecified; I08.3 Combined rheumatic disorders of mitral, aortic and tricuspid valves; E78.5 Hyperlipidemia, unspecified; G43.909 Migraine, unspecified, not intractable, without status migrainosus; M16.12 Unilateral primary osteoarthritis, left hip; Z87.442 Personal history of urinary calculi; Z86.73 Personal history of transient ischemic attack (TIA), and cerebral infarction without residual deficits; Z91.040 Latex allergy status; Z91.048 Other nonmedicinal substance allergy status; Z98.890 Other specified postprocedural states; Z87.891 Personal history of nicotine dependence; Z79.82 Long term (current) use of aspirin; Z79.899 Other long term (current) drug therapy
CPT/HCPCS: 33340; 80053; 85025; 85347; 85610; 85730; 86850; 86900; 86901; 93312; C1759; C1760; C1889; C1893; C1894; J1100; J1644; J2405; J2704; J2720; J3010; Q9967